=== PATIENT | female | born 1965 | race Caucasian/White ===

== ENCOUNTER 2019-08-23 18:37 | Emergency (ER) | payer OTHER, SELFPAY ==
--- NOTE | 2019-08-23 18:51 | ED.ALLEREA ---
HPI - Allergic Reaction General Chief complaint: Allergic Reaction Stated complaint: ALLERGIC REACTION Time Seen by Provider: 08/23/19 18:50 Source: patient Mode of arrival: ambulatory Limitations: no limitations History of Present Illness HPI narrative: The pt is a 53 y/o female who presents to the ED c/o hives onset two days ago. Pt states that she noticed hives across her posterior thighs and buttocks, but she notes these usually go away without difficulty. She states that she woke up the next day and noticed them spreading down her legs. Pt states that she was at work when she noticed it spreading down her BUE. Pt states that she has taken multiple Benadryl 50 mg capsules, but not 300 mg in total. She states that she also has taken Hydroxyzine, which has improved her itching. She noticed pain to the bilateral feet and hands, as well as swelling in the left wrist. Pt states that she went to her PCP, Marlyn Hickey NP, who gave her a steroid shot today and recommended she come to the ED in case her condition got worse. She eventually called and came in. Pt reports tongue soreness, sore throat, and a sensation of a lump in the chest. She denies SOB and wheezing. Pt denies any usage of new medicines, eating new foods, or trying any new products in her home. complaint: hives Onset (ago): day(s) (2) Symptoms: itching (Diffuse) and other ( tongue soreness, sore throat, left wrist swelling, bilateral hand pain, bilateral feet pain, sensation of a lump in the chest ) Treatment prior to arrival: benadryl, steroids and other (Hydroxyzine) Related Data Home Medications Medication Instructions Recorded Confirmed duloxetine [Cymbalta] 30 mg PO DAILY 08/23/19 08/23/19 duloxetine [Cymbalta] 60 mg PO DAILY 08/23/19 08/23/19 ergocalciferol (vitamin D2) 08/23/19 [Vitamin D2] ezetimibe mg 08/23/19 metformin mg PO 08/23/19 pregabalin 08/23/19 Allergies Allergy/AdvReac Type Severity Reaction Status Date / Time sulfamethoxazole Allergy Intermediate ITCHING/HIV Verified 01/06/19 07:17 ES trimethoprim Allergy Intermediate ITCHING/HIV Verified 01/06/19 07:17 ES penicillin G Allergy Unknown Hives Verified 08/23/19 19:11 Penicillins Allergy Unknown Hives Verified 08/23/19 19:11 Quinolones Allergy Unknown Hives Verified 08/23/19 19:11 bupropion AdvReac Unknown Agitated Verified 08/23/19 19:04 Review of Systems Review of Systems: All systems reviewed & are unremarkable except as noted in HPI and below ENT: Reports mouth pain (Tongue pain), Reports sore throat and Reports other (Sensation of a lump in the chest) Respiratory: Respiratory: Denies dyspnea and Denies wheezing Musculoskeletal: Musculoskeletal: Reports joint swelling (Left wrist) and Reports other (bilateral hand pain, bilateral feet pain) Integumentary/Breasts: Skin/Breast: Reports pruritus (Diffuse) and Reports other (Diffuse hives) [facility] Past Medical History Medical History (Updated 08/23/19 @ 23:02 by Marcelle Mccurdy MD) Anxiety Arthritis Bronchitis Depression Fibromyalgia Surgical History Surgical History (Updated 08/23/19 @ 18:58 by De Pendleton) S/p total knee replacement, bilateral Family History Family History (Updated 01/24/16 @ 23:19 by DOCTOR UNKNOWN) Father Family history of malignant neoplasm of thyroid Sibling Family history of malignant neoplasm of thyroid Grandparent Family history of lung cancer, Onset Age: 60 Other Diabetes mellitus Family history of alcoholism Family history of malignant neoplasm of breast Family history of mental disorder Social History Social History Smoking status: Never smoker Alcohol intake: current Gender identity (if verbalized by the patient): Female Comments 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
[2019-08-23 18:54] VITALS: BP 110/45; PULSE 81; RESP 15; TEMP 36.6; O2SAT 97
[2019-08-23] MEDS: methylPREDNISolone SOD SUCC 125 MG VIAL IV PUSH (19:16)
[2019-08-23] MEDS: EPINEPHrine HCL INJ 1 MG/ML AMPUL 0.3 MG IM ×2 (19:16→20:47)
[2019-08-23] MEDS: FAMOTIDINE 20 MG/2 ML VIAL IV PUSH (19:16)
[2019-08-23 19:21] VITALS: BP 123/71; PULSE 84; RESP 20; O2SAT 98
[2019-08-23 20:47] VITALS: BP 115/64; PULSE 84; RESP 16; TEMP 36.2; O2SAT 100
--- NOTE | 2019-08-23 21:41 | PC.NURSE ---
PT REPORTS NO RELIEF AFTER 2ND ROUND OF EPI. NOTIFIED. NO NEW ORDERS.
[2019-08-23 21:57] VITALS: BP 125/81; PULSE 82; RESP 17; O2SAT 100
[2019-08-23 23:40] VITALS: BP 124/85; PULSE 81; RESP 16; TEMP 36.2; O2SAT 100
== END 2019-08-23 23:41 | disposition home or self-care (01) ==
PROVIDERS: Emergency Provider Emergency Medicine; PCP Nurse Practitioner Adult Health
DX: L50.9 Urticaria, unspecified (principal); F41.9 Anxiety disorder, unspecified; M19.90 Unspecified osteoarthritis, unspecified site; F32.9 Major depressive disorder, single episode, unspecified; M79.7 Fibromyalgia; Z96.653 Presence of artificial knee joint, bilateral
CPT/HCPCS: 96372; 96374; 96375; 99284; J0171; J1200; J2930

== ENCOUNTER 2019-08-24 19:06 | Emergency (ER) | payer OTHER, SELFPAY ==
[2019-08-24 20:10] VITALS: BP 126/67; PULSE 106; RESP 22; TEMP 38.1; O2SAT 99
[2019-08-24 23:30] VITALS: BP 131/81; PULSE 95; RESP 16; TEMP 37; O2SAT 99
--- NOTE | 2019-08-25 00:54 | ED.ALLEREA ---
HPI - Allergic Reaction General Chief complaint: Allergic Reaction Stated complaint: hives,throat swelling Time Seen by Provider: 08/25/19 00:25 Source: patient and family Mode of arrival: ambulatory Limitations: no limitations History of Present Illness HPI narrative: 53-year-old female Long history of idiopathic urticaria Also numerous medication allergies and sensitivities Complains of a 5-day history of migratory hives pruritus and a feeling like she is having difficulty swallowing and swelling of the hands this evening There is no hoarseness there is no stridor there is no wheezing She is seen 2 other physicians [facility] she has been treated with H1 and H2 antihistamines steroids and epinephrine already Neither she nor anyone that she has recently seen has any idea what might have triggered this episode Specifically no unusual foods no new medications and no current viral illness sinus infection or anything like that MD complaint: hives and facial swelling Onset (ago): day(s) Exposure: unknown Symptoms: rash, itching, facial swelling and difficulty swallowing Severity: moderate Treatment prior to arrival: benadryl, epinephrine, steroids and topical medicine Previous Allergic Reaction History: other Related Data Home Medications Medication Instructions Recorded Confirmed duloxetine [Cymbalta] 30 mg PO DAILY 08/23/19 08/23/19 duloxetine [Cymbalta] 60 mg PO DAILY 08/23/19 08/23/19 ergocalciferol (vitamin D2) 08/23/19 [Vitamin D2] ezetimibe mg 08/23/19 metformin mg PO 08/23/19 pregabalin 08/23/19 Allergies Allergy/AdvReac Type Severity Reaction Status Date / Time sulfamethoxazole Allergy Intermediate ITCHING/HIV Verified 01/06/19 07:17 ES trimethoprim Allergy Intermediate ITCHING/HIV Verified 01/06/19 07:17 ES penicillin G Allergy Unknown Hives Verified 08/23/19 19:11 Penicillins Allergy Unknown Hives Verified 08/23/19 19:11 Quinolones Allergy Unknown Hives Verified 08/23/19 19:11 bupropion AdvReac Unknown Agitated Verified 08/23/19 19:04 Review of Systems Review of Systems: All systems reviewed & are unremarkable except as noted in HPI and below Constitutional: Constitutional: Denies chills, Denies fatigue, Denies fever(s), Denies headache(s) and Denies night sweats Eyes: Eyes: Denies change in vision, Denies loss of vision and Denies other visual disturbances ENT: Denies headache(s), Denies hoarseness, Denies epistaxis, Denies nasal congestion and Reports sore throat Cardiovascular: Cardiovascular: Denies chest pain, Denies leg edema, Denies palpitations and Denies dyspnea Respiratory: Respiratory: Denies cough, Denies dyspnea and Denies wheezing Gastrointestinal: Gastrointestinal: Denies abdominal pain, Denies diarrhea, Denies nausea and Denies vomiting Genitourinary: Genitourinary: Denies hematuria, Denies urinary frequency and Denies dysuria Musculoskeletal: Musculoskeletal: Denies abnormal gait, Denies myalgias, Denies deformity, Reports joint swelling, Denies muscle weakness and Denies numbness Comments: Swelling of the feet this morning which is resolved, swelling of the hands now, this started after she began steroids Integumentary/Breasts: Skin/Breast: Denies rash, Denies unusual bruising and Denies wounds Neurologic: Denies abnormal gait, Denies headache(s), Denies focal weakness, Denies loss of vision and Denies numbness Psychiatric: Psychiatric: Reports no additional psychiatric complaints Endocrine: Endocrine: Denies fatigue and Denies palpitations Hematologic/Lymphatic: Hematologic/Lymphatic: Denies easy bleeding and Denies easy bruising Allergic/Immunologic: Allergic/Immunologic: Denies wheezing PMFSH Past Medical History Medical History Anxiety Arthritis Bronchitis Depression Fibromyalgia Surgical History Surgical History S/p total kne
[2019-08-25] MEDS: DOXEPIN HCL 25 MG CAPSULE 50 MG PO (01:06)
[2019-08-25] MEDS: EPINEPHrine HCL INJ 1 MG/ML AMPUL 0.5 MG IM (01:07)
[2019-08-25 02:07] VITALS: BP 132/88; PULSE 88; RESP 16; TEMP 36.9; O2SAT 99
== END 2019-08-25 02:08 | disposition home or self-care (01) ==
PROVIDERS: Emergency Provider Emergency Medicine; PCP Nurse Practitioner Adult Health
DX: L50.9 Urticaria, unspecified (principal)
CPT/HCPCS: 87081; 87880; 96372; 99283; A9270; J0171

== ENCOUNTER → 2020-06-19 15:36 | Outpatient (CLI) | payer OTHER, SELFPAY ==
--- NOTE | ~2020-06-19 | MM_ITS ---
EXAMINATION: MM screening wilfredo BI w ed HISTORY: Screening mammogram TECHNIQUE: Craniocaudal and mediolateral oblique 3-D tomosynthesis images were obtained and synthetic 2-D images were generated. CAD analysis was submitted and interpreted. COMPARISON: 12/12/2018, 03/29/2017, 10/29/2015 bilateral digital screening mammogram examinations BREAST PARENCHYMAL COMPOSITION: There are scattered areas of fibroglandular density. FINDINGS: Biopsy markers and surgical clips are noted on the left; history of 3 prior benign left gema ast biopsies. There is no evidence of interval suspicious mass, calcification, or architectural disto rtion to suggest malignancy in either breast. There has been no suspicious interval change. IMPRESSION: 1. No mammographic evidence of malignancy. 2. Recommend routine screening mammography in one year. BI-RADS Category 2: Benign finding(s). Reviewed, dictated and finalized at location A. ITECTURE CONSULTANT
== END ==
PROVIDERS: PCP Nurse Practitioner Adult Health; Visit Provider Nurse Practitioner Adult Health
DX: Z12.31 Encounter for screening mammogram for malignant neoplasm of breast (principal)
CPT/HCPCS: 77063; 77067

== ENCOUNTER 2020-07-31 08:53 | Outpatient (CLI) | payer OTHER, SELFPAY ==
--- NOTE | 2020-07-31 16:25 | WPDPFTINT ---
PFT Interpretation This is a pulmonary function test with pre and post-bronchodilator spirometry, plethysmography and diffusing capacity. The test was performed and results interpreted in accordance with the 2019 and 2005 ATS/ERS Task Force guidelines respectively using the Tarik/Alfonso reference equations. Findings: Spirometry: The contour the inspiratory and expiratory flow tracing are normal. The pre bronchodilator FVC is 2.78 L, 96% predicted. The pre bronchodilator FEV1 is 2.25 L, 104% predicted. The FEV1: FVC ratio was 81%. The post bronchodilator FVC is 2.77 L, representing no change. The post bronchodilator FEV1 is 2.36 L, representing a 5% increase. Plethysmography the total lung capacity is 4.13 L, 95% predicted. The functional residual capacity is 1.26 L, 75% predicted. The peau the residual volume is 1.24 L, 80% predicted. Diffusing capacity the absolute diffusion capacity is 19.4, 76% predicted. Diffusing capacity corrected for alveolar volume is 5.34, 135% predicted. Impression: The spirometry is normal without evidence of an obstructive abnormality. There is no significant improvement after inhaling a single dose of albuterol. There is an isolated decrease in the functional residual capacity with a normal total lung capacity. This is an abnormal but nonspecific lung volume pattern. The Absolute diffusing capacity is mildly decreased but increased when corrected for alveolar volume. There are no prior studies for comparison
== END 2020-07-31 08:54 | disposition home or self-care (01) ==
PROVIDERS: PCP Nurse Practitioner Adult Health; Visit Provider Nurse Practitioner Adult Health
DX: R06.09 Other forms of dyspnea (principal)
CPT/HCPCS: 94060; 94200; 94726; 94729

== ENCOUNTER → 2021-12-16 16:02 | Outpatient (CLI) | payer OTHER, SELFPAY ==
--- NOTE | ~2021-12-16 | MM_ITS ---
EXAMINATION: MM screening wilfredo BI w ed HISTORY: Screening mammogram TECHNIQUE: Craniocaudal and mediolateral oblique 3-D tomosynthesis images were obtained and synthetic 2-D images were generated. CAD analysis was submitted and interpreted. COMPARISON: 06/19/2020, 12/12/2018, 03/29/2017 bilateral screening mammogram examinations BREAST PARENCHYMAL COMPOSITION: There are scattered areas of fibroglandular density. FINDINGS: Biopsy markers and clips again noted on the left; history of prior benign left breast biops ies. There is no evidence of suspicious mass, calcification, or architectural distortion to suggest m alignancy in either breast. There has been no suspicious interval change. IMPRESSION: 1. No mammographic evidence of malignancy. 2. Recommend routine screening mammography in one year. BI-RADS Category 1: Negative Reviewed, dictated and finalized at location A.
== END ==
PROVIDERS: PCP Nurse Practitioner Adult Health; Visit Provider Nurse Practitioner Adult Health
DX: Z12.31 Encounter for screening mammogram for malignant neoplasm of breast (principal)
CPT/HCPCS: 77063; 77067

== ENCOUNTER 2022-03-13 14:02 | Emergency (ER) | payer OTHER, SELFPAY ==
--- NOTE | 2022-03-13 14:07 | ED.UPPEXIN ---
HPI - Extremity Injury (Upper) General Chief Complaint: Extremity Injury, Upper Stated Complaint: rt shoulder pain fell Time Seen by Provider: 03/13/22 14:50 Source: patient and RN notes reviewed Mode of arrival: ambulatory Limitations: no limitations History of Present Illness HPI narrative: 56-year-old female presents with concern for right shoulder pain. Reports she fell yesterday, is not sure how she landed. She reports she did not have immediate pain in the shoulder, she did have ankle pain that resolved but she now has pain in the anterior right shoulder that occurs when she raises her arm or moves her arm in a certain way. She reports dull ache at rest. She reports she takes anti-inflammatory for other problems and she has not taken any additional pain medicines. She denies decreased strength or sensation in the shoulder or arm. MD complaint: injury to: right and shoulder Related Data Home Medications Medication Instructions Recorded Confirmed duloxetine 30 mg capsule,delayed 30 mg PO DAILY 08/23/19 11/12/20 release (Cymbalta) duloxetine 60 mg capsule,delayed 60 mg PO DAILY 08/23/19 11/12/20 release (Cymbalta) ezetimibe 10 mg tablet mg 08/23/19 11/12/20 metformin 500 mg tablet,extended mg PO 08/23/19 11/12/20 release 24 hr evening primrose oil-linoleic 1 cap PO TID 11/14/19 11/12/20 acid-gamolenic acid 1,000 mg capsule omeprazole magnesium 20 mg 20 mg PO DAILY 11/14/19 11/12/20 tablet,delayed release (Prilosec OTC) trazodone 150 mg tablet 150 mg PO BID 11/14/19 11/12/20 celecoxib 50 mg capsule (Celebrex) 50 mg PO DAILY 07/24/20 11/12/20 omega-3 fatty acids 1,000 mg 1,000 mg PO DAILY 11/12/20 11/12/20 capsule (Fish Oil Concentrate) Allergies Allergy/AdvReac Type Severity Reaction Status Date / Time sulfamethoxazole Allergy Intermediate ITCHING/HIV Verified 11/12/20 12:52 ES trimethoprim Allergy Intermediate ITCHING/HIV Verified 11/12/20 12:52 ES ciprofloxacin [From Cipro] Allergy Mild severe Verified 11/12/20 12:52 penicillin G Allergy Unknown Hives Verified 11/12/20 12:52 Penicillins Allergy Unknown Hives Verified 11/12/20 12:52 Quinolones Allergy Unknown Hives Verified 11/12/20 12:52 bupropion AdvReac Unknown Agitated Verified 11/12/20 12:52 Review of Systems Review of Systems: CONSTITUTIONAL: Denies malaise, chills, sweats, or fever. SKIN: Denies rash or itching, open skin, laceration, abrasion, redness, warmth, swelling. MUSCULOSKELETAL: Reports right anterior shoulder pain NEUROLOGIC: Denies numbness, weakness All systems reviewed & are unremarkable except as noted in HPI and below PMFSH Past Medical History Medical History Anxiety Arthritis Arthritis, lumbar spine Bilateral carpal tunnel syndrome Bronchitis Burning mouth syndrome Depression Fibromyalgia Gout Migraine Ulcer Surgical History Surgical History H/O sinus surgery History of cholecystectomy History of partial hysterectomy History of thyroid surgery S/p total knee replacement, bilateral right - 09/22/18 halina left 04/21/19 samuel Family History Family History Father Family history of malignant neoplasm of thyroid Sibling Family history of malignant neoplasm of thyroid Grandparent Family history of lung cancer, Onset Age: 60 Other Diabetes mellitus Family history of alcoholism Family history of malignant neoplasm of breast Family history of mental disorder Social History Social History Smoking status: Never smoker Alcohol intake: current Gender identity (if verbalized by the patient): Female Spiritual care concerns: Yes ( Islam) Agree to blood products: No Comments At time of signature, agree with nursing past medical, surgical, social and family hi
[2022-03-13 14:10] VITALS: BP 129/72; PULSE 72; RESP 21; TEMP 36.2; O2SAT 100
== END 2022-03-13 15:05 | disposition home or self-care (01) ==
PROVIDERS: Emergency Provider Nurse Practitioner; PCP Nurse Practitioner Adult Health
DX: S43.401A Unspecified sprain of right shoulder joint, initial encounter (principal); W19.XXXA Unspecified fall, initial encounter; M47.816 Spondylosis without myelopathy or radiculopathy, lumbar region; F32.A Depression, unspecified; M79.7 Fibromyalgia; M10.9 Gout, unspecified; Z90.711 Acquired absence of uterus with remaining cervical stump; Z96.653 Presence of artificial knee joint, bilateral
CPT/HCPCS: 99213; A4565; G0463

== ENCOUNTER 2022-05-14 08:33 | Emergency (ER) | payer OTHER, SELFPAY ==
[2022-05-14 08:47] VITALS: BP 105/75; PULSE 85; RESP 18; TEMP 36.9; O2SAT 100
--- NOTE | 2022-05-14 09:00 | ED.URI ---
HPI - URI/Sore Throat General Chief Complaint: Upper Respiratory Infection Stated Complaint: Sore Throat,Cough Time Seen by Provider: 05/14/22 08:55 Source: patient Mode of arrival: ambulatory Limitations: no limitations History of Present Illness HPI Narrative: Ms. Marshall is a 56-year-old female patient presenting to clinic today with complaints of sore throat,cough, and congestion. States that she has had a sore throat for approximately 4-5 days however this morning she woke up and she is congested nasally and having a productive cough with some yellow phlegm. She denies having any fever or chills. She denies any known exposure to anybody for strep, flu, or cold. Patient has taken COVID testing yesterday was negative MD elicited complaint: sore throat and nasal congestion Related Data Home Medications Medication Instructions Recorded Confirmed duloxetine 30 mg capsule,delayed 30 mg PO DAILY 08/23/19 05/14/22 release (Cymbalta) duloxetine 60 mg capsule,delayed 60 mg PO DAILY 08/23/19 05/14/22 release (Cymbalta) evening primrose oil-linoleic 1 cap PO TID 11/14/19 05/14/22 acid-gamolenic acid 1,000 mg capsule omeprazole magnesium 20 mg 20 mg PO DAILY 11/14/19 05/14/22 tablet,delayed release (Prilosec OTC) omega-3 fatty acids 1,000 mg 1,000 mg PO DAILY 11/12/20 05/14/22 capsule (Fish Oil Concentrate) diazepam 2 mg tablet 2 mg PO DIRECTED 05/14/22 05/14/22 nitrofurantoin 100 mg PO BID 05/14/22 05/14/22 monohydrate/macrocrystals 100 mg capsule trazodone 100 mg tablet 100 mg PO DIRECTED 05/14/22 05/14/22 Allergies Allergy/AdvReac Type Severity Reaction Status Date / Time sulfamethoxazole Allergy Intermediate ITCHING/HIV Verified 05/14/22 08:56 ES trimethoprim Allergy Intermediate ITCHING/HIV Verified 05/14/22 08:56 ES ciprofloxacin [From Cipro] Allergy Mild severe Verified 05/14/22 08:56 penicillin G Allergy Unknown Hives Verified 05/14/22 08:56 Penicillins Allergy Unknown Hives Verified 05/14/22 08:56 Quinolones Allergy Unknown Hives Verified 05/14/22 08:56 bupropion AdvReac Unknown Agitated Verified 05/14/22 08:56 Review of Systems Review of Systems: Pertinent positives per HPI. Patient denies any fever, chills, rash, headache, visual changes, dizziness, shortness of breath, chest pain, palpitations, nausea, vomiting, diarrhea, constipation, abdominal pain, or any urinary issues. PMFSH Past Medical History Medical History Anxiety Arthritis Arthritis, lumbar spine Bilateral carpal tunnel syndrome Bronchitis Burning mouth syndrome Depression Fibromyalgia Gout Migraine Ulcer Surgical History Surgical History H/O sinus surgery History of cholecystectomy History of partial hysterectomy History of thyroid surgery S/p total knee replacement, bilateral right - 09/22/18 halina left 04/21/19 samuel Family History Family History Father Family history of malignant neoplasm of thyroid Sibling Family history of malignant neoplasm of thyroid Grandparent Family history of lung cancer, Onset Age: 60 Other Diabetes mellitus Family history of alcoholism Family history of malignant neoplasm of breast Family history of mental disorder Social History Social History Smoking status: Never smoker Alcohol intake: current Gender identity (if verbalized by the patient): Female Spiritual care concerns: Yes ( Buddhism) Agree to blood products: No Comments At the time of my signature, I reviewed and agree with the nursing past medical, surgical, social, and family history. There is no relevant family history pertinent to the patient complaint. Exam Narrative: General: Well-developed, well nourished, in no appare
== END 2022-05-14 09:20 | disposition home or self-care (01) ==
PROVIDERS: Emergency Provider Nurse Practitioner Family; PCP Nurse Practitioner Adult Health
DX: J06.9 Acute upper respiratory infection, unspecified (principal); J02.9 Acute pharyngitis, unspecified; M19.90 Unspecified osteoarthritis, unspecified site; M79.7 Fibromyalgia; M10.9 Gout, unspecified; F32.A Depression, unspecified; F41.9 Anxiety disorder, unspecified; M47.816 Spondylosis without myelopathy or radiculopathy, lumbar region
CPT/HCPCS: 87081; 87880; 99213; G0463

== ENCOUNTER → 2022-05-19 12:10 | Outpatient (CLI) | payer OTHER, SELFPAY ==
--- NOTE | ~2022-05-19 | MR_ITS ---
EXAMINATION: MR wrist LT wo con DATE: 05/19/2022 12:58 INDICATION: Left wrist pain TECHNIQUE: Magnetic resonance imaging (MRI) of the left wrist was performed without intravenous contr ast. Sequences performed include axial PD-weighted FSE and PD-weighted FS FSE, coronal PD-weighted FS FSE, T1-weighted SE and PD-weighted FLEX and sagittal PD-weighted FS FSE and PD-weighted FSE. COMPARISON: ii FINDINGS: Intrinsic ligaments: The lunotriquetral ligament is normal. Thickening and increased signal peripherally dorsal and volar components of the scapholunate ligament with widening of the scapholunate joint space which is more c learly evident on the prior radiographs. Extrinsic ligaments: The volar radioscaphoid capitate ligament appears normal. There is thickening an d increased signal of the volar radiolunate ligament consistent with partial tear along which extends to an intrasubstance mild lobulated ganglion cyst which extends approximately 1.3 cm along the axis of the ligament and involves approximately 3 x 3 mm region in orthogonal dimensions. Mild thickening and increased signal surrounding the scaphoid side of the dorsal intercarpal ligament and at the triq uetral side of the dorsal radial triquetral ligament consistent with additional partial tears. Triangular fibrocartilage complex (TFCC): There is a partial tear at the foveal and ulnar styloid attachments of the triangular fibrocartilage complex. There is also partial tear along the dorsal radioulnar ligament. The volar radioulnar ligame nt along with the fibrocartilaginous disc of the triangular fibrocartilage complex remain normal. The ulnar collateral ligament, ulnotriquetral ligament and meniscal homologue are normal. The extensor c arpi ulnaris tendon subjacent appears intact with thickening along its insertion along the radial mar gin of the ECU groove. Extensor wrist: Extensor tendons of the wrist are normal. No tenosynovitis. Flexor wrist: The flexor tendons of the wrist are normal. No abnormality in the carpal tunnel with normal median n erve. Guyon's canal: Guyon's canal including the ulnar nerve and artery are normal. Bones/other: Likely reactive marrow edema at the radial side of the lunate. Marrow signal is otherwise normal. No fracture or pathologic marrow replacing process. 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 Additional mild osteoarthritis at the first carpomet acarpal joint. IMPRESSION: 1. 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 2. Additional partial tears of the volar radiolunate ligament and the dorsal intercarpal and dorsal r adial triquetral extrinsic ligaments of the wrist. 3. Partial tears at the dorsal radioulnar ligament as well as the foveal and styloid attachments of t he triangular fibrocartilage complex. Reviewed, dictated and finalized at location A. T SAFETY ENGINEER IMPRESSION: 1. 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 2. Additional partial tears of the volar radiolunate ligament and the dorsal in tercarpal and dorsal radial triquetral extrinsic ligaments of the wrist. 3. Partial tears at the dorsal radioulnar ligament as well as the foveal and st yloid attachments of the triangular fibrocartilage complex.
== END ==
PROVIDERS: PCP Orthopaedic Surgery; Visit Provider Orthopaedic Surgery
DX: S63.592A Other specified sprain of left wrist, initial encounter (principal); X58.XXXA Exposure to other specified factors, initial encounter
CPT/HCPCS: 73221

== ENCOUNTER 2022-11-06 01:41 | Day surgery (SDC) | payer OTHER, SELFPAY ==
[2022-10-27 15:53] VITALS: BMI 32.5
--- NOTE | 2022-11-05 20:01 | PM.HPGS ---
History of Present Illness History of Present Illness Consent: Risks, benefits, and alternatives have been discussed and questions answered. Patient agrees to proceed with procedure. Chief complaint: epigastric pain, chest pain, hx colon polyps Narrative: Radha Marshall is a 57 year old female here for evaluation of intermittent epigastric pain. Pt reports sudden onset of pain located epigastric region and diaphragm. States pain only last 1 min or so and then resolves, she denies any associated symptoms. describes pain as a spasm. she had approximately 5 episodes over the past 1-1/2 years. States symptoms only happen in the evening time usually 5-30 minutes after eating. She can not identify any triggers that cause her symptoms but thinks she may have had alcohol with these episodes. She also reports intermittent lower mid sternal chest discomfort after eating lunch, this is not every day and does not result in having a spasm later in the evening. She has hx of Gastritis in 2017 and was on pantoprazole daily back then. Four years ago she had colonoscopy with removal of a tubular adenoma. Review of Systems Review of Systems: All systems reviewed & are unremarkable except as noted in HPI and below PMFSH Past Medical History Medical History Anxiety Arthritis Arthritis, lumbar spine Bilateral carpal tunnel syndrome Bronchitis Burning mouth syndrome Depression Epigastric pain Fibromyalgia Gout Hx of colonic polyps Migraine Nonspecific chest pain Ulcer Surgical History Surgical History H/O sinus surgery History of cholecystectomy History of partial hysterectomy History of thyroid surgery S/p total knee replacement, bilateral right - 09/22/18 halina left 04/21/19 samuel Family History Family History Father Family history of malignant neoplasm of thyroid Sibling Family history of malignant neoplasm of thyroid Grandparent Family history of lung cancer, Onset Age: 60 Other Diabetes mellitus Family history of alcoholism Family history of malignant neoplasm of breast Family history of mental disorder Social History Social History Smoking status: Never smoker Alcohol intake: current Drinks per week: 10 Substance use: never Substance use type: does not use Living arrangements: with family Gender identity (if verbalized by the patient): Female Spiritual care concerns: Yes (BLOOD CONSIDERATIONS) Agree to blood products: No Meds Home Medications and Allergies Home Medications Medication Instructions Recorded Confirmed Type duloxetine 30 mg capsule,delayed 30 mg PO DAILY 08/23/19 10/27/22 History release (Cymbalta) duloxetine 60 mg capsule,delayed 60 mg PO DAILY 08/23/19 10/27/22 History release (Cymbalta) evening primrose oil-linoleic 1 cap PO BID 11/14/19 10/27/22 History acid-gamolenic acid 1,000 mg capsule diazepam 2 mg tablet 2 mg PO DIRECTED PRN Anxiety 05/14/22 10/27/22 History trazodone 100 mg tablet 100 mg PO HS 05/14/22 10/27/22 History calcium polycarbophil 625 mg 1,250 mg PO DAILY 10/27/22 10/27/22 History tablet (FiberCon) celecoxib 200 mg capsule 200 mg PO PRN PRN Pain 10/27/22 10/27/22 History clindamycin HCl 150 mg capsule 150 mg PO USEASDIRECTD 10/27/22 10/27/22 History fluticasone propionate 50 2 spray intranasal HS 10/27/22 10/27/22 History mcg/actuation nasal spray,suspension linaclotide 72 mcg capsule 72 mcg PO QAM 1 month #30 caps 10/27/22 10/29/22 Rx (Linzess) loratadine 10 mg tablet (Claritin) 10 mg PO DAILY 10/27/22 10/27/22 History naproxen sodium 220 mg capsule 220 mg PO DAILY PRN Pain 10/27/22 10/27/22 History (Aleve) polyethylene glycol 3350 17 17 g PO DAILY 10/27/22 10/27/22 History gram/dose oral powder (Key
--- NOTE | 2022-11-06 13:19 | WPDANESEPPF ---
Anes - Initial Pre Proc Eval Procedure: Operation Date: 11/06/22 14:15 Proposed Procedures p Esophagogastroduodenoscopy & Colonoscopy - Raffi Harris MD Date/Time: 11/06/22 13:19 Surgeon: Raffi Harris MD Pre Op Diagnosis: epigastric pain, chest pain, hx colon polyps Patient Data Age: 57 Gender: F Height: 1.56 m Weight: 79.5 kg Allergies Allergy/AdvReac Type Severity Reaction Status Date / Time ciprofloxacin [From Cipro] Allergy Severe severe Verified 10/27/22 16:01 penicillin G Allergy Intermediate Difficulty Verified 10/27/22 16:01 Breathing Penicillins Allergy Intermediate Difficulty Verified 10/27/22 16:01 Breathing Quinolones Allergy Intermediate Other Verified 10/27/22 16:01 sulfamethoxazole Allergy Intermediate ITCHING/HIV Verified 10/27/22 16:01 ES trimethoprim Allergy Intermediate ITCHING/HIV Verified 10/27/22 16:01 ES bupropion AdvReac Intermediate Agitated Verified 10/27/22 16:01 Home Medications Medication Instructions Recorded Confirmed Type duloxetine 30 mg capsule,delayed 30 mg PO DAILY 08/23/19 10/27/22 History release (Cymbalta) duloxetine 60 mg capsule,delayed 60 mg PO DAILY 08/23/19 10/27/22 History release (Cymbalta) evening primrose oil-linoleic 1 cap PO BID 11/14/19 10/27/22 History acid-gamolenic acid 1,000 mg capsule diazepam 2 mg tablet 2 mg PO DIRECTED PRN Anxiety 05/14/22 10/27/22 History trazodone 100 mg tablet 100 mg PO HS 05/14/22 10/27/22 History calcium polycarbophil 625 mg 1,250 mg PO DAILY 10/27/22 10/27/22 History tablet (FiberCon) celecoxib 200 mg capsule 200 mg PO PRN PRN Pain 10/27/22 10/27/22 History clindamycin HCl 150 mg capsule 150 mg PO USEASDIRECTD 10/27/22 10/27/22 History fluticasone propionate 50 2 spray intranasal HS 10/27/22 10/27/22 History mcg/actuation nasal spray,suspension linaclotide 72 mcg capsule 72 mcg PO QAM 1 month #30 caps 10/27/22 10/29/22 Rx (Linzess) loratadine 10 mg tablet (Claritin) 10 mg PO DAILY 10/27/22 10/27/22 History naproxen sodium 220 mg capsule 220 mg PO DAILY PRN Pain 10/27/22 10/27/22 History (Aleve) polyethylene glycol 3350 17 17 g PO DAILY 10/27/22 10/27/22 History gram/dose oral powder (Miralax) Patient hx anesthesia problems: none Family hx anesthesia problems: none Results Review: All pre-operative results and documents have been reviewed as part of the pre-operative evaluation. [facility] Past Medical History Medical History (Updated 10/22/22 @ 16:19 by ADRI ChavezN-C) Anxiety Arthritis Arthritis, lumbar spine Bilateral carpal tunnel syndrome Bronchitis Burning mouth syndrome Depression Epigastric pain Fibromyalgia Gout Hx of colonic polyps Migraine Nonspecific chest pain Ulcer Surgical History Surgical History H/O sinus surgery History of cholecystectomy History of partial hysterectomy History of thyroid surgery S/p total knee replacement, bilateral right - 09/22/18 halina left 04/21/19 samuel Family History Family History Father Family history of malignant neoplasm of thyroid Sibling Family history of malignant neoplasm of thyroid Grandparent Family history of lung cancer, Onset Age: 60 Other Diabetes mellitus Family history of alcoholism Family history of malignant neoplasm of breast Family history of mental disorder Social History Social History Smoking status: Never smoker Alcohol intake: current Drinks per week: 10 Substance use: never Substance use type: does not use Living arrangements: with family Gender identity (if verbalized by the patient): Female Spiritual care concerns: Yes (BLOOD CONSIDERATIONS) Agree to blood products: No Anes - Eval Final PreProcedure Day of Procedure 11/06/22 13:19 Patient weight: obese Hear
[2022-11-06 13:26] VITALS: BP 110/69; PULSE 78; RESP 18; TEMP 36.3; O2SAT 100
[2022-11-06] MEDS: LACTATED RINGERS 1,000 ML 150 ML IV CONT (13:40)
[2022-11-06] MEDS: ceFAZolin 1 GM/NS 50 ML 1 GM/50 ML BAG IVPB (13:44)
--- NOTE | 2022-11-06 14:15 | SUR.OPER ---
egd: scope in 1355, scope out 1357 colon: scope in 1403, scope out 1414
[2022-11-06 14:18] VITALS: BP 106/63; PULSE 65; RESP 16; O2SAT 100
[2022-11-06 14:28] VITALS: BP 118/79; PULSE 58; RESP 16; O2SAT 99
[2022-11-06 14:38] VITALS: BP 124/81; PULSE 58; RESP 20; O2SAT 100
== END 2022-11-06 14:50 | disposition home or self-care (01) ==
PROVIDERS: PCP Physician Assistant; Visit Provider Internal Medicine Gastroenterology
PROC: 0DJ08ZZ Inspection of Upper Intestinal Tract, Via Natural or Artificial Opening Endoscopic (ICD-10-PCS; CPT 43235; principal; 2022-11-06 14:15)
DX: Z12.11 Encounter for screening for malignant neoplasm of colon (principal); K64.8 Other hemorrhoids; K57.30 Diverticulosis of large intestine without perforation or abscess without bleeding; Z86.010 Personal history of colon polyps; K21.9 Gastro-esophageal reflux disease without esophagitis; K29.70 Gastritis, unspecified, without bleeding; F41.9 Anxiety disorder, unspecified; F32.A Depression, unspecified; E66.9 Obesity, unspecified; Z68.32 Body mass index [BMI] 32.0-32.9, adult
CPT/HCPCS: 45378; 43239; 87081; J0690; J2704; J7120

== ENCOUNTER → 2023-05-19 16:15 | Outpatient (CLI) | payer OTHER, SELFPAY ==
--- NOTE | ~2023-05-19 | MM_ITS ---
EXAMINATION: MM screening wilfredo BI w ed HISTORY: Screening mammogram TECHNIQUE: Craniocaudal and mediolateral oblique 3-D tomosynthesis images were obtained and synthetic 2-D images were generated. CAD analysis was submitted and interpreted. COMPARISON: 12/16/2021, 06/19/2020, 12/12/2018 bilateral screening mammogram examinations BREAST PARENCHYMAL COMPOSITION: There are scattered areas of fibroglandular density. FINDINGS: Biopsy markers and clips are again noted in the left breast; history of 3 prior benign left breast biopsies. There is no evidence of interval suspicious mass, calcification, or architectural d istortion to suggest malignancy in either breast. There has been no suspicious interval change. IMPRESSION: 1. No mammographic evidence of malignancy. 2. Recommend routine screening mammography in one year. BI-RADS Category 2: Benign finding(s). Reviewed, dictated and finalized at location A. NT ACCOUNT REPRESENTATIVE
== END ==
PROVIDERS: PCP Nurse Practitioner Adult Health; Visit Provider Nurse Practitioner Adult Health
DX: Z12.31 Encounter for screening mammogram for malignant neoplasm of breast (principal)
CPT/HCPCS: 77063; 77067

== ENCOUNTER 2023-07-07 10:06 | Outpatient (CLI) | payer OTHER, SELFPAY ==
--- NOTE | ~2023-07-07 | XR_ITS ---
Supine and upright views of the abdomen Clinical history: Abdominal pain Findings: Bowel gas pattern is nonspecific. No evidence for obstruction or free air. Cholecystectomy clips are present. Probable calcified pelvic phleboliths. No abnormal mass lesion or calcification is seen. Osseous structures are intact. Impression: No significant abnormality is seen. Reviewed, dictated and finalized at [facility] [place] [facility]. ER OPERATOR Impression: No significant abnormality is seen.
== END 2023-07-07 10:07 | disposition home or self-care (01) ==
LOC: ANHBWCLAB 10:08
PROVIDERS: PCP Nurse Practitioner Adult Health; Visit Provider Nurse Practitioner Adult Health
DX: R10.9 Unspecified abdominal pain (principal)
CPT/HCPCS: 74018

== ENCOUNTER → 2023-07-21 12:50 | Outpatient (CLI) | payer OTHER, SELFPAY ==
--- NOTE | ~2023-07-21 | CT_ITS ---
Non-contrast CT scan of the Abdomen and Pelvis Clinical indication: Unspecified abdominal pain Technique: 2.5 mm axial scans were obtained through the abdomen and pelvis without intravenous or or al contrast. Dose reduction technique was used on this scan by utilizing automated exposure control a nd iterative reconstruction technique. The dose-length product (DLP) was 999.64 mGy-cm. Findings: Images through the lung bases reveal no abnormalities. There is no evidence of renal or ureteral calculi. The kidneys and the ureters are nondilated. The liver, spleen, pancreas, and adrenals appear normal. Cholecystectomy clips are present. There is no aortic aneurysm. There is no evidence of bowel obstruction. Images through the pelvis were performed. There is no evidence of ascites or lymphadenopathy. Urinary bladder unremarkable. No adnexal mass evident. No ascites. Impression: No significant abnormality seen. Reviewed, dictated and finalized at [facility]. INSOLE CHANNELER Impression: No significant abnormality seen.
== END ==
PROVIDERS: PCP Nurse Practitioner Adult Health; Visit Provider Nurse Practitioner Adult Health
DX: R10.9 Unspecified abdominal pain (principal)
CPT/HCPCS: 74176

== ENCOUNTER 2024-01-26 08:13 | Outpatient (CLI) | payer OTHER, SELFPAY ==
--- NOTE | ~2024-01-26 | XR_ITS ---
EXAMINATION: XR hip BI 2V w AP pelvis DATE: 01/26/2024 08:32 INDICATION: Pain in unspecified hip. TECHNIQUE: An anteroposterior view of the pelvis and 2 views of each hip were obtained. COMPARISON: Pelvis and hip radiographs 07/24/2020 FINDINGS: Bone alignment is normal. No fracture. Joint spaces are normal. There is mild lumbar spondy losis. IMPRESSION: 1. Normal hips. Reviewed, dictated and finalized at location A. IMPRESSION: 1. Normal hips.
--- NOTE | ~2024-01-26 | XR_ITS ---
EXAMINATION: XR lumbar spine 2-3V DATE: 01/26/2024 08:32 INDICATION: Dorsalgia, unspecified. TECHNIQUE: 3 views of lumbar spine were obtained. COMPARISON: Lumbar spine radiographs 07/24/2020 FINDINGS: There is 5 degrees levocurvature of lumbar spine. There is 3 mm anterolisthesis of L4 on L5 . There is mild chronic anterior wedging of T10 and T11 vertebral bodies. There is mildly decreased d isc height at L1-L2. There is multilevel facet joint osteoarthritis, severe in lower lumbar spine. IMPRESSION: 1. Mild lumbar spondylosis. Reviewed, dictated and finalized at location A. IMPRESSION: 1. Mild lumbar spondylosis.
== END 2024-01-26 08:14 | disposition home or self-care (01) ==
LOC: ANHBWCIMG 08:15
PROVIDERS: PCP Nurse Practitioner Adult Health; Visit Provider Nurse Practitioner Adult Health
DX: M43.06 Spondylolysis, lumbar region (principal)
CPT/HCPCS: 72100; 73521

== ENCOUNTER 2024-05-30 09:32 | Outpatient (CLI) | payer BC, SELFPAY ==
--- NOTE | ~2024-05-30 | MR_ITS ---
EXAMINATION: MR lumbar spine wo con DATE: 05/30/2024 10:46 INDICATION: Spondylosis without myelopathy or radiculopathy. TECHNIQUE: Magnetic resonance imaging (MRI) of the lumbar spine was performed without intravenous con trast. Sequences included sagittal T2-weighted FSE, sagittal T2-weighted FS FSE, sagittal T1-weighted FSE, and axial T2-weighted FSE. COMPARISON: Lumbar spine MRI 05/14/2016 FINDINGS: There is 5 degrees levocurvature of thoracolumbar spine. There is 3 mm anterolisthesis of L 4-L5. There is mild chronic anterior wedging of T12 vertebral body. Intervertebral disc heights are n ormal. The distal spinal cord signal intensity is normal. The conus medullaris is at L1-L2. The follo wing disc levels are specifically discussed: L1-L2: There is a central protrusion. There is mild bilateral facet joint osteoarthritis. There is no neural foraminal stenosis. There is mild central canal stenosis. L2-L3: The disc does not extend beyond the endplate margin. There is mild bilateral facet joint osteo arthritis. There is no neural foraminal stenosis. There is no central canal stenosis. L3-L4: The disc does not extend beyond the endplate margin. There is no facet joint osteoarthritis. T here is no neural foraminal stenosis. There is no central canal stenosis. L4-L5: The disc is bulging. There is severe bilateral facet joint osteoarthritis. There is mild bilat eral neural foraminal stenosis. There is mild central canal stenosis. L5-S1: The disc does not extend beyond the endplate margin. There is moderate bilateral facet joint o steoarthritis. There is mild bilateral neural foraminal stenosis. There is no central canal stenosis. IMPRESSION: 1. Mild lumbar spondylosis, stable from 05/14/2016. Reviewed, dictated and finalized at location A. CAL RECORDS ANALYST
== END 2024-05-30 09:33 | disposition home or self-care (01) ==
PROVIDERS: PCP Nurse Practitioner Adult Health; Visit Provider Nurse Practitioner Adult Health
DX: M47.26 Other spondylosis with radiculopathy, lumbar region (principal)
CPT/HCPCS: 72148

== ENCOUNTER 2024-05-30 09:41 | Outpatient (CLI) | payer BC, SELFPAY ==
--- NOTE | ~2024-05-30 | MM_ITS ---
EXAMINATION: MM screening wilfredo BI w ed HISTORY: Screening TECHNIQUE: Craniocaudal and mediolateral oblique 3-D tomosynthesis images were obtained and synthetic 2-D images were generated. CAD analysis was submitted and interpreted. COMPARISON: Comparison to multiple prior studies sequentially, with oldest reviewed study dated 08/2015. BREAST PARENCHYMAL COMPOSITION: Not dense: There are scattered areas of fibroglandular density. FINDINGS: There is no evidence of suspicious mass, calcification, or architectural distortion to sugg est malignancy in either breast. There has been no suspicious interval change. IMPRESSION: 1. No mammographic evidence of malignancy. 2. Recommend routine screening mammography in one year. BI-RADS Category 1: Negative Reviewed, dictated and finalized at location B. OGRAPHER
== END 2024-05-30 09:42 | disposition home or self-care (01) ==
PROVIDERS: PCP Nurse Practitioner Adult Health; Visit Provider Nurse Practitioner Adult Health
DX: Z12.31 Encounter for screening mammogram for malignant neoplasm of breast (principal)
CPT/HCPCS: 77063; 77067

== ENCOUNTER 2024-09-19 08:47 | Outpatient (CLI) | payer BC, SELFPAY ==
--- NOTE | ~2024-09-19 | MR_ITS ---
EXAMINATION: MR hip LT wo con, MR hip RT wo con DATE: 09/19/2024 09:45 INDICATION: Bilateral hip pain TECHNIQUE: 1. Magnetic resonance imaging (MRI) of the right hip was performed without intravenous contrast. Sequ ences included full-field axial PD-weighted FS FSE and T1-weighted FSE, coronal of the pelvis with PD -weighted FS FSE, T2-weighted FSE and T1-weighted FSE, small field of view of the right hip with axia l PD-weighted FS FSE, sagittal PD-weighted FS FSE, coronal PD-weighted FS FSE and coronal T2 weighte d FSE. Additional radial T1-weighted FGR oriented orthogonal to the acetabular rim were obtained for evaluation of the labrum. 2. MRI of the left hip was performed without intravenous contrast. Sequences included small field of view of the left hip with axial PD-weighted FS FSE, sagittal PD-weighted FS FSE, coronal PD-weighted FS FSE and coronal T2 weighted FSE. Additional radial T1-weighted FGR oriented orthogonal to the tere tabular rim were obtained for evaluation of the labrum. COMPARISON: Radiographs dated 01/26/2024 FINDINGS: Bones/labrum/cartilage: Alignment is normal. No fracture, avascular necrosis or pathologic marrow replacing process.. Articu lar cartilage and acetabular labrum is normal at both hips. Lumbar facet osteoarthritis, severe bilat erally at L4-L5 and moderate bilaterally at L5-S1. Fluid: Symmetric physiologic amount of fluid within both hip joints. There is mild increased fluid signal ov erlying the superolateral margin of the bilateral greater trochanters consistent with mild trochanter ic bursitis. Soft tissues: Normal and symmetric muscle bulk and signal in the pelvis and visualized proximal thighs. The iliopso as, gluteal and proximal hamstring tendons are normal. The uterus is not identified and has likely be en surgically resected. Limited evaluation of visceral organs of the pelvis is otherwise unremarkable including a normal appendix. No pathologically enlarged pelvic/inguinal lymphadenopathy. IMPRESSION: 1. Mild bilateral trochanteric bursitis. 2. Lumbar facet osteoarthritis, severe bilaterally at L4-L5 and moderate bilaterally at L5-S1. Reviewed, dictated and finalized at location B. IMPRESSION: 1. Mild bilateral trochanteric bursitis. 2. Lumbar facet osteoarthritis, severe bilaterally at L4-L5 and moderate bilate rally at L5-S1.
== END 2024-09-19 08:48 | disposition home or self-care (01) ==
LOC: MICIMG 08:49
PROVIDERS: PCP Nurse Practitioner Adult Health; Visit Provider Anesthesiology Pain Medicine
DX: M70.62 Trochanteric bursitis, left hip (principal); M70.61 Trochanteric bursitis, right hip
CPT/HCPCS: 73721

== ENCOUNTER 2025-04-09 16:31 | Emergency (ER) | payer OTHER, SELFPAY ==
[2025-04-09] VITALS (23 sets, daily range): BP systolic 120–151; BP diastolic 67–125; PULSE 42–88; RESP 12–23; TEMP 36.6; O2SAT 87–100
--- NOTE | ~2025-04-09 | XR_ITS ---
XR chest 1V portable INDICATION:palpitations . REFERENCE: None FINDINGS: A single AP of the chest demonstrates normal heart size. There are patchy infiltrates within the lower lobes bilaterally. There is no evidence of pneumothorax or pleural effusion. IMPRESSION: Patchy infiltrates are noted within the lower lobes bilaterally. Reviewed, dictated and finalized at location S.
--- NOTE | 2025-04-09 16:33 | ECG_ITS ---
Test Date: 2025-04-09 16:38:26 Measurements Intervals Thompson Rate: 92 P: 48 NV: 141 QRS: -7 QRSD: 97 T: 8 QT: 352 QTc: 436 Interpretive Statements SINUS RHYTHM WITH VENTRICULAR BIGEMINY DELAYED PRECORDIAL R/S TRANSITION VOLTAGE CRITERIA FOR LVH BASELINE ARTIFACT- I, II, III, AVR, AVL, AVF, V1-V3 ABNORMAL ECG No previous ECG available for comparison Electronically Signed On 04-09-2025 19:03:22 CDT by Curtis Minaya D.O.
--- OUTSIDE RECORDS SUMMARY | 2025-04-09 16:34 | XMS_ITS | Clinical Summary ---
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 Acti ve DICLOFENAC SODIUM OP Place in affected eye(s). Active DULoxetine (CYMBALTA) [address] Particles Take 30 mg by mouth daily. Active DULoxetine (CYMBALTA) [address] Particles Take 60 mg by mouth daily. Active V-R EVENING PRIMROSE OIL PO Take by mouth. Active Aspirin-Acetaminoph en-Caffeine (EXCEDRIN MIGRAINE PO) Take by mouth. Activ e ezetimibe (ZETIA) 10 MG Tablet Take 10 mg by mouth daily. Active HYDROcodone-acetami nophen (NORCO) 5-325 MG Tablet Take 1 Tab by mouth every 4 hours as needed. Active metFORMIN (GLUCOPHAGE) 500 MG Tablet Take 500 mg by mouth 2 times daily (with meals). Active methocarbamol (ROBAXIN) 500 MG Tablet Take 1,000 mg by mouth 4 times daily. Active PANTOPRAZOLE SODIUM PO Take 40 mg by mouth. Active traZODone (DESYREL) 150 MG Tablet Take 150 mg by mouth nightly. Active ergocalciferol (VITAMIN D) 92871 UNIT Capsule Take 50,000 Units by mouth. Active diclofenac sodium (VOLTAREN) 1 % Gel Apply 4 times daily. Active aluminum & magnesium hydroxide-simethico ne 200-200-20 MG/5ML SUSP 90 mL, diphenhydrAMINE 12.5 MG/5ML ELIX 31.25 mg, lidocaine viscous 2 % SOLN 20 mL 5-10 mL by Swish & Spit route every 6 hours as needed. for mouth/throat discomfort. Pharmacist Mixture Instructions *ALUM & MAG HYDROXIDE-SIMETH 200-200-20 MG/5ML PO SUSP -- 360 mL *DIPHENHYDRAMINE HCL 12.5 MG/5ML PO ELIX -- 125 MG *LIDOCAINE VISCOUS 2% MT SOLN -- 80 mL Active Social History Tobacco Use Types Packs/Day Years Used Date Smoking Tobacco: Never Smokeless Tobacco: Never Alcohol Use Standard Drinks/Week Comments Yes 0 (1 standard drink = 0.6 oz pur e alcohol) social Comments Unknown Sex and Gender Information Value Date Recorded Sex Assigned at Not on file Legal Sex Female 6:09 PM CDT Gender Identity Not on file Sexual Orientation Not on file Last Filed Vital Signs Vital Sign Reading Time Taken Comments Blood Pressure 114/76 08/19/2018 10:12 AM SENIOR SUPPORT ANALYST Pulse 71 08/19/2018 10:12 AM SENIOR SUPPORT ANALYST Temperature 36.9 C (98.5 F) 08/19/2018 10:12 AM SENIOR SUPPORT ANALYST Respiratory Rate - - Oxygen Saturation 96% 08/19/2018 10: 12 AM SENIOR SUPPORT ANALYST Inhaled Oxygen Concentration - - Weight 106.5 kg (234 lb 12.8 oz) 2018 10:12 AM SENIOR SUPPORT ANALYST Height 156.5 cm (5' 1.6) 08/19/2018 10 :12 AM SENIOR SUPPORT ANALYST Body Mass Index 43.51 08/19/2018 10:12 AM SENIOR SUPPORT ANALYST Plan of Treatment Health Maintenance Due Date Last Done Comments Hepatitis C Virus (HCV) Screening 1965 TdaP Immunization 1965 Cologuard 11/03/2011 Colonoscopy 11/03/2011 Colorectal Cancer Screening 11/03/2011 Immunochemical Fecal Occult Blood 11/03/2011 Pneumococcal Immunization (50+ years) (1 of 1 - PCV) 2016 Zoster Immunization (1 of 2) 2016 Influenza Immunization (#1) 2025 10/0 06/2017, 04/01/2016, 02/28/2015, Additional history exists SARS-COV-2 Immunization ( season) 2025 10/24/2021, 03/24/2021, 09/16/2020, Additional history exists Respiratory Syncytial Virus (RSV) Immunization (Adult) (1 - 1-dose 75+ series) 2041 Hepatitis B Immunization Completed 014, 05/31/2013, 04/19/2013 Human Papillomavirus (HPV) Immunization Aged Out No longer eligible based on patient's age to complete this topic Meningococcal Immunization (ACWY) Aged Out No longer eligible based on patient's age to complete this topic Rotavirus Immunization Aged Out No lo nger eligible based on patient's age to complete this topic Care Teams Beef Cattle Grazier Relationship Specialty Start Date End Date Marlyn Hickey APRN PCP - General Advanced Practice Nurse 08/19/18 Joel Ch [address] [place] [address] Orthopaedic Surgery 08/19/18
--- OUTSIDE RECORDS SUMMARY | 2025-04-09 16:34 | XMS_ITS | Clinical Summary ---
Author Organization [facility] [employer] Address [address] [address] Care Team Providers Care Audiovisual Lead Technician Name Role Phone Hector Morel DO Primary Care Provider Source Comments [facility],non-owned Affiliates and Associated Physician Practices is amultiple site organization consisting of ambulatory clinics and hospital sitesin [place], [place], [place] and [place]. This disclosure is being madepursuant to the Care Everywhere program and may not contain all information available regarding this patient. 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 Problems Problem Noted Date Diagnosed Date Other microscopic hematuria 02/20/2015 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 Rectocele 02/20/2015 Stress incontinence 02/20/2015 Other disturbances of skin sensation 03/29/2012 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 Migraine without status migrainosus, not intract able 10/13/2011 Fibromyalgia 10/13/2011 Resolved Problems Problem Noted Date Diagnosed Date Resolved Date Constipation 02/20/2015 10/25/2017 Family History Medical History Relation Name Comments Thyroid Disease Father Heart Disease Maternal Grandfather Diabetes Maternal Grandmother Osteoporosis Maternal Grandmother Depression Mother Migraine Mother Cancer - Breast Other Diabetes Other Relation Name Status Comments Father Maternal Grandfather Maternal Grandmother Mother Other Social History Tobacco Use Types Packs/Day Years Used Date Smoking Tobacco: Passive Smo ke Exposure - Never Smoker Smokeless Tobacco: Never Alcohol Use Standard Drinks/Week Comments Yes 0 (1 standard drink = 0.6 oz pur e alcohol) Comments Unknown Sex and Gender Information Value Date Recorded Sex Assigned at Not on file 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 Gender Identity Not on file Sexual Orientation Not on file Last Filed Vital Signs Vital Sign Reading Time Taken Comments Blood Pressure 127/60 06/03/2015 10:56 AM MARKETING BUSINESS ANALYST Pulse - - Temperature 36.5 C (97.7 F) 06/03/2015 10:56 AM MARKETING BUSINESS ANALYST Respiratory Rate - - Oxygen Saturation - - Inhaled Oxygen Concentration - - Weight 102.3 kg (225 lb 8 oz) 06/03/2015 10:56 A M MARKETING BUSINESS ANALYST Height 154.9 cm (5' 1) 06/03/2015 10:56 AM MARKETING BUSINESS ANALYST Body Mass Index 42.61 06/03/2015 10:56 AM MARKETING BUSINESS ANALYST Plan of Treatment Health Maintenance Due Date Last Done Comments COLOGUARD (AGES 45-75) - COL ON CA SCREENING 1966 COLON MONITORING 1966 COLONOSCOPY - COLON CA SCREENING 1966 CT COLONOGRAPHY - COLON CA SCREENING 1966 Colorectal Cancer Screening 1966 FIT - COLON CA SCREENING 1966 FLEX SIG - COLON CA SCREENING 1966 LIPID TESTING 1966 MAMMOGRAM 1966 HIV SCREENING 1981 HEPATITIS C SCREENING 10/28/1984 DTAP/TDAP/TD VACCINES (1 - Tdap) 1985 HEPATITIS B VACCINE (1 of 3 - 19+ 3-dose series) 1985 PNEUMOCOCCAL VACCINE 50+ (1 of 1 - PCV) 2016 ZOSTER VACCINE (1 of 2) 2016 DEPRESSION SCREENING 06/28/2024 COVID-19 VACCINE (1 - 2023-2 5 season) 2025 INFLUENZA VACCINE (#1) 2025 HIB VACCINE Aged Out No longer eligi ble based on patient's age to complete this topic HPV VACCINE Aged Out No longer eligi ble based on patient's age to complete this topic MENINGOCOCCAL (Group B) VACC INE SHARED DECISION-MAKING Aged Out No longer eligibl e based on patient's age to complete this topic MENINGOCOCCAL GROUPS A/C/Y/W VACCINE Aged Out No longer eligible b ased on patient's age to complete this topic Care Teams Audiovisual Lead Technician Relationship Specialty Start Date End Date Hector Morel DO PCP - General 04/30/15
--- OUTSIDE RECORDS SUMMARY | 2025-04-09 16:35 | XMS_ITS | Data Portability ---
Author Organization [place] - [facility], Main Office Address [address] [place] [address] Assessment No assessment recorded. Plan of Treatment Reminders Order Date Submit Date Provider Last Modified By Organization Details Last Modified Time Details Appointments None recorded. Lab None recorded. Referral gastroenter ologist referral - Please call pt to schedule appt. Thank you 2022 023 [email or web address] Jorge Muller MD, [address] [facility] [address], [place] [address], [address], 3 14:32:40 Procedures None recorded. Surgeries None recorded. Imaging None recorded. Medication Orders None recorded. Patient TargetsNo targets recorded. Patient InstructionsNo instructions recorded. 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 Thank you Referring Physician: Fariba Ambrose, Family Medicine, Encounter Date: 10/05/2022 Results Created Date Observation Date Name Description Value Unit Range Abnormal Flag Note LastModifiedBy Organization Detail LastModifiedTime 09/13/19 22 09/15/2021 BACTE RIAL VAGIN OSIS, AARON atopobium vaginae low - 0 score Not Available [facility] (Lab) [address] [place], [address], 09/15/2021 23:07:14 09/13/19 22 09/15/2021 BACTE RIAL VAGIN OSIS, AARON bvab 2 low - 0 score Not Available [facility] (Lab) [address] [place], [address], 09/15/2021 23:07:14 09/13/19 22 09/15/2021 BACTE RIAL VAGIN OSIS, AARON megasphaera 1 low - 0 score . Calcu late total score by lupe post the 3 indiv idual bacte rial vagin osis (BV) marke r score s toget her. Total score is inter prete d as follo ws: Total score 0-1: Indic ates the absen ce of BV. Total score 2: Indet ermin ate for BV. Addit ional clini rosa data shoul d be evalu ated to estab jace a diagn osis. Total score 3-6: Indic ates the prese nce of BV. . This test was devel oped and its perfo rmanc e lori cteri stics deter mined by [facility]. It has not been clear ed or appro bradford by the Food and Drug Admin istra tion. Perfo rmed at: =G - [facility] [place] [address] [facility] , [place] , [place] [address] [address] Lab Direc tor: Riky dan MD, Phone : [phone] Not Available [facility] (Lab) [address] [place], [address], 09/15/2021 23:07:14 12/21/19 22 12/21/2021 VITAM IN D, 25-HY DROXY vitamin D, 25-hydroxy 93.7 NG/mL 30.0-1 00.0 Vitam in D defic iency has been defin ed by the Insti tute of Medic ine and an Endoc rine Socie ty pract ice guide line as a level of serum 25-OH vitam in D less than 20 ng/mL (1,2) . The Endoc rine Socie ty went on to furth er defin e vitam in D insuf ficie ncy as a level betwe en 21 and 29 ng/mL (2). 1. IOM (Inst itute of Medic ine). 2010. Dieta ry refer ence intak es for calci um and D. Mingo victor [place]: The [facility] Press . 2. Rupesh levine MF, Abel oconnell [place], Tavon off-F linh i OTOOLE, et al. Evalu ation , treat ment, and preve ntion of vitam in D defic iency : an Endoc rine Socie ty clini rosa pract ice guide line. JCEM. 2010; 96(7) :1911 -30. Not Available [facility] ([facility]) [address] [place], [address], 12/21/2021 08:13:36 12/21/19 22 12/21/2021 HEMOG LOBIN A1C hemoglobin A1C 5.4 % 4.8-5. 6 Predi abete s: 5.7 - 6.4 Diabe emile: >6.4 Glyce jerry contr ol for adult s with diabe emile: <7.0 Not Available [facility] ([facility]) [address] [place], [address], 12/21/2021 08:13:36 12/21/19 22 12/21/2021 COMP. METAB OLIC PANEL (14) glucose 91 mg/dL 65-99 Not Available [facility] ([facility]) [address] [place], [address], 12/21/2021 08:13:35 12/21/19 22 12/21/2021 COMP. METAB OLIC PANEL (14) BUN 21 mg/dL 6-24 Not Available [facility] ([facility]) [address] [place], [address], 12/21/2021 08:13:35 12/21/19 22 12/21/2021 COMP. METAB OLIC PANEL (14) creatinine 0.76 mg/dL 0.57-1 .00 Not Available [facility] ([facility]) [address] [place], [address], 12/21/2021 08:13:35 12/21/19 22 12/21/2021 COMP. METAB OLIC PANEL (14) eGFR 92 mL/mi n/1.7 3 >59 Not Available [facility] ([facility]) [address], [place], [address], 12/21/2021 08:13:35 12/21/19 22 12/21/2021 COMP. METAB OLIC PANEL (14) BUN/creatini ne ratio 28 9-23 above high normal Not Available [facility] ([facility]) [address] [place], [address], 12/21/2021 08:13:35 12/21/19 22 12/21/2021 COMP. METAB OLIC PANEL (14) sodium 139 mmol/ L 134-14 4 Not Available [facility] ([facility]) [address] [facility] [place], [address], 12/21/2021 08:13:35 12/21/19 22 12/21/2021 COMP. METAB OLIC PANEL (14) potassium 4.6 mmol/ L 3.5-5. 2 Not Available [facility] ([facility]) [address] [facility], [place], [address], 12/21/2021 08:13:35 12/21/19 22 12/21/2021 COMP. METAB OLIC PANEL (14) chloride 101 mmol/ L 96-106 Not Available [facility] ([facility]) [address] [facility] [place], [address], 12/21/2021 08:13:35 12/21/19 22 12/21/2021 COMP. METAB OLIC PANEL (14) carbon dioxide, total 25 mmol/ L 20-29 Not Available [facility] ([facility]) [address] [facility] [place], [address], 12/21/2021 08:13:35 12/21/19 22 12/21/2021 COMP. METAB OLIC PANEL (14) calcium 9.0 mg/dL 8.7-10 .2 Not Available [facility] ([facility]) [address] [facility] [place], [address], 12/21/2021 08:13:35 12/21/19 22 12/21/2021 COMP. METAB OLIC PANEL (14) protein, total 6.7 g/dL 6.0-8. 5 Not Available [facility] ([facility]) [address], [place], [address], 12/21/2021 08:13:35 12/21/19 22 12/21/2021 COMP. METAB OLIC PANEL (14) albumin 4.3 g/dL 3.8-4. 9 Not Available [facility] ([facility]) [address], [place], [address], 12/21/2021 08:13:35 12/21/19 22 12/21/2021 COMP. METAB OLIC PANEL (14) globulin, total 2.4 g/dL 1.5-4. 5 Not Available [facility] ([facility]) [address] [facility], [place], [address], 12/21/2021 08:13:35 12/21/19 22 12/21/2021 COMP. METAB OLIC PANEL (14) A/G ratio 1.8 1.2-2. 2 Not Available [facility] ([facility]) [address] [facility], [place], [address], 12/21/2021 08:13:35 12/21/19 22 12/21/2021 COMP. METAB OLIC PANEL (14) bilirubin, total 0.3 mg/dL 0.0-1. 2 Not Available [facility] ([facility]) [address] [facility], [place], [address], 12/21/2021 08:13:35 12/21/19 22 12/21/2021 COMP. METAB OLIC PANEL (14) alkaline phosphatase 73 IU/L 44-121 Not Available [facility] ([facility]) [address] [facility], [place], [address], 12/21/2021 08:13:35 12/21/19 22 12/21/2021 COMP. METAB OLIC PANEL (14) AST (SGOT) 22 IU/L 0-40 Not Available [facility] ([facility]) [address] [place], [address], 12/21/2021 08:13:35 12/21/19 22 12/21/2021 COMP. METAB OLIC PANEL (14) ALT (SGPT) 21 IU/L 0-32 Not Available [facility] ([facility]) [address] [place], [address], 12/21/2021 08:13:35 12/21/19 22 12/21/2021 LP+CH D RISK+ LDL/H DL RATIO cholesterol, total 250 mg/dL 100-19 9 above high normal Not Available [facility] ([facility]) [address] [place], [address], 12/21/2021 08:13:35 12/21/19 22 12/21/2021 LP+CH D RISK+ LDL/H DL RATIO triglyceride s 46 mg/dL 0-149 Not Available [facility] ([facility]) [address] [place], [address], 12/21/2021 08:13:35 12/21/19 22 12/21/2021 LP+CH D RISK+ LDL/H DL RATIO HDL cholesterol 81 mg/dL >39 Not Available [facility] ([facility]) [address] [place], [address], 12/21/2021 08:13:35 12/21/19 22 12/21/2021 LP+CH D RISK+ LDL/H DL RATIO VLDL cholesterol rosa 7 mg/dL 5-40 Not Available [facility] ([facility]) [address] [place], [address], 12/21/2021 08:13:35 12/21/19 22 12/21/2021 LP+CH D RISK+ LDL/H DL RATIO LDL chol calc ([facility]) 162 mg/dL 0-99 above high normal Not Available [facility] (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) [address] [facility], [place], [address], 12/21/2021 08:13:35 12/21/19 22 12/21/2021 LP+CH D RISK+ LDL/H DL RATIO estimated CHD risk < 0.5 times _avg. 0.0-1. 0 The CHD Risk is based on the T. Chol/ HDL ratio . Other facto rs affec t CHD Risk such as hyper tensi on, smoki ng, diabe emile, sever e obesi ty, and famil y histo ry of russell ture CHD. Not Available [facility] ([facility]) [address] [facility], [place], [address], 12/21/2021 08:13:35 12/21/19 22 12/21/2021 LP+CH D RISK+ LDL/H DL RATIO LDL/HDL ratio 2.0 ratio 0.0-3. 2 LDL/H DL Ratio Men Women 1/2 Avg.R isk 1.0 1.5 Avg.R isk 3.6 3.2 2X Avg.R isk 6.2 5.0 3X Avg.R isk 8.0 6.1 Not Available [facility] ([facility]) [address] [facility], [place], [address], 12/21/2021 08:13:35 05/05/20 22 05/05/2022 urina lysis , dipst ick Leukocytes (reference range: negative john/ l) Negati ve Not Available [facility] [address] , [address], [place], [address], 05/05/2022 11:34:05 05/05/20 22 05/05/2022 urina lysis , dipst ick Nitrite (reference rage: negative mg/dl) negati ve Not Available [address] , [address], [place], [address], 05/05/2022 11:34:05 05/05/20 22 05/05/2022 urina lysis , dipst ick Urobilinogen (reference range: 0.2-1 mg/dl) 0.2 Not Available [address] , [address], [place], [address], 05/05/2022 11:34:05 05/05/20 22 05/05/2022 urina lysis , dipst ick Protein (reference range: negative mg/dl) Negati ve Not Available [address] , [address], [place], [address], 05/05/2022 11:34:05 05/05/20 22 05/05/2022 urina lysis , dipst ick pH (reference range: 5-7) 7.0 Not Available [address] , [address], [place], [address], 05/05/2022 11:34:05 05/05/20 22 05/05/2022 urina lysis , dipst ick Blood (reference range: negative Vickey/ l) Small Not Available [address] , [address], [place], [address], 05/05/2022 11:34:05 05/05/20 22 05/05/2022 urina lysis , dipst ick Specific [place] (reference range: 1.005-1.030) 1.015 Not Available [address] , [address], [place], [address], 05/05/2022 11:34:05 05/05/20 22 05/05/2022 urina lysis , dipst ick Ketone (reference range: negative mg/dl) Negati ve Not Available [address] , [address], [place], [address], 05/05/2022 11:34:05 05/05/20 22 05/05/2022 urina lysis , dipst ick Bilirubin (reference range: negative mg/dl) Negati ve Not Available [address] , [address], [place], [address], 05/05/2022 11:34:05 05/05/20 22 05/05/2022 urina lysis , dipst ick Glucose (reference range: negative mg/dl) Negati ve Not Available [address] , [address], [place], [address], 05/05/2022 11:34:05 05/05/20 22 05/05/2022 urina lysis , dipst ick Appearance Clear Not Available [address] , [address], [place], [address], 05/05/2022 11:34:05 05/05/20 22 05/05/2022 urina lysis , dipst ick Color Yellow Not Available [address] , [address], [place], [address], 05/05/2022 11:34:05 05/05/20 22 05/05/2022 CULTU RE URINE urc ===== ===== ===== ===== ===== ===== ===== ===== ===== ===== ===== ===== ===== ===== ===== ===== ===== ===== ===== ===== ===== ===== ===== ===== CULTU RE NO.: [id number] Exam Statu s: Final Exam Type: CULTU RE URINE ===== ===== ===== ===== ===== ===== ===== ===== ===== ===== ===== ===== ===== ===== ===== ===== ===== ===== ===== ===== ===== ===== ===== ===== Cultu re Repor t: Organ ism #01 Esche mike a coli (escc ol) Antib iotic s escco l Achie vable Achie vable (01) Dosag e Serum Level Urine Level mcg/m l mcg/m l Sylvia [place] <=2 S 021K Ampic illin 8 S 021K Ampic illin /Sulb actam 4 S 021K Cefaz mandy <=4 S 021K Cefep sarah <=1 S 021K Cefox itin <=4 S 021K Ceftr iaxon e <=1 S 021K Cipro floxa parish <=0.2 5 S 021K ESBL NEG - 021K Genta micin <=1 S 021K Levof loxac in <=0.1 2 S 021K Merop enem <=0.2 5 S 021K Piper acill in./T azaba <=4 S 021K Tobra mycin <=1 S 021K Trmet hopri m.Sul fa <=20 S 021K rt - Test Card Code AST-G N 021K o2 - Final Organ ism ESCHE R 021K af - Antib iotic Fami TRIME T 021K af - Antib iotic Famil y Na ap - Pheno type Name WILD 021K ap - Pheno type Name Nitro furan toin 32 S 021K Not Available [facility] ([facility]) [address], [place], [address], 05/07/2022 16:33:40 12/17/19 22 12/16/2021 MAMMO , scree christoph, digit al, bilat eral No observ ation record ed. [id number] [facility] [address], [place], [address], 08/26/2022 14:14:26 07/08/19 24 07/07/2023 XR, abdom en No observ ation record ed. [email or web address] [facility] [address], [place], [address], 07/08/2023 14:33:23 Result Notes None recorded. Problems Name Problem SNOMED Code Status Onset Date Resolution Date Notes Provider Name and Address Organization Details Recorded Time Osteoarth ritis 891545439 Active Not Available [facility] 3 14:11:33 Fibromyal dania 240669163 Active 2017 Not Available [facility] 3 14:11:32 Depressiv e disorder 38108923 Active 2017 Not Available [facility] 3 14:11:33 Migraine 36822317 Active 2017 Not Available [facility] 3 14:11:33 Post-trau matic stress disorder 13959824 Active 2017 Not Available [facility] 3 14:11:33 Anxiety 27736576 Active 2017 Not Available [facility] 3 14:11:33 Sleep apnea 76075870 Active 2017 Not Available [facility] 3 14:11:33 Pitting edema 013324178 Completed 201711/09/2018 Not Available [facility] 3 14:11:33 Hyperglyc emia 80980927 Active 2018 Not Available [facility] 3 14:11:33 History of total knee arthropla sty 76467308434 05 Active 2018 Not Available [facility] 3 14:11:32 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 Not Available [facility] 3 14:11:32 Cataract 540098585 Active 2020 Not Available [facility] 3 14:11:32 Disorder of vitamin D 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 Active 2020 Not Available [facility] 3 14:11:33 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 Not Available [facility] 3 14:11:32 Atrophic vaginitis 57675716 Active 2020 Not Available [facility] 3 14:11:33 Chronic idiopathi c constipat ion 25270772 Active 2020 Not Available [facility] 3 14:11:33 Bunion 355871237 Active 2021 Not Available [facility] 3 14:11:33 Mixed anxiety and depressiv e disorder 766362440 Active 2022 ZOHAR Contreras [address] [facility], [address], [address] , [facility] [employer] [facility] [employer] 3 11:52:51 Gastroeso phageal reflux disease 411932460 Active 2022 ZOHRA Contreras [address] [facility], [facility] [address], [place], [address] , [facility] [employer] [facility] [employer] 3 08:22:25 Problem Notes None recorded. Procedures Surgical History Date Name Laterality Status Provider Name and Address Organization Details Recorded Time Colonoscopy completed Not Available [facility] 08/26/2022 14:10:34 019 Knee Replacement completed Not Available [facility] 08/26/2022 14:10:34 parathyroidectomy completed Not Available [facility] 08/26/2022 14:10:34 Carpal tunnel completed Not Available [facility] 08/26/2022 14:10:34 Cholecystectomy completed Not Available [facility] 08/26/2022 14:10:34 Sinus Surgery completed Not Available [facility] includes the [facility] 08/26/2022 14:10:34 Hysterectomy, Partial completed Not Available Count includes the [facility] 08/26/2022 14:10:34 completed Not Available Count includes the [facility] 08/26/2022 14:10:34 lumpectomy of left breast completed Not Available Count includes the [facility] 08/26/2022 14:10:34 Imaging Results None recorded. Procedure Notes None recorded. Medical Equipment None Reported. Allergies Allergen ID Allergen Name Allergen Category Reaction Reaction Severity Criticality Documentation Date Start Date Code Code System Note Provider Name and Address Organization Details Recorded Time 66742 Wellbutri n medicatio n Not available Not available Not available 08/26/2022 51948 RxNorm state s it makes her psych otic Not Available Count includes the [facility] 3 14:14:23 84729 Substance with sulfonami de structure and antibacte rial mechanism of action (substanc e) medicatio n anaphylax is Not available Not available 08/26/2022 15016 8003 SNOMED Not Available Count includes the [facility] 3 14:14:23 30964 Product containin g penicilli n (product) medicatio n Not available Not available Not available 08/26/2022 32300 8001 SNOMED child bourne; has had amoxi cilli n as an adult and was fine Not Available Count includes the [facility] 3 14:14:23 05310 Cipro medicatio n Not available Not available Not available 08/26/202276205 3 RxNorm sympt oms of a heart attac k Not Available Count includes the [facility] 3 14:14:23 Medications Name Sig Start Date Stop Date Status Note LastModified by Organization Details LastModified Time celecoxib 200 mg capsule Take 1 capsule twice a day by oral route for 90 days. active Not Available Not Available No t Available methocarbam ol 500 mg tablet Take 2 tablets twice a day by oral route as needed. 08/23 completed Not Available Not Available Not Available doxepin 50 mg capsule 02/14 completed Not Available Not Available Not Available doxycycline hyclate 100 mg capsule Take 1 capsule twice a day by oral route for 10 days. active Not Available Not Available No t Available Depo-Medrol 40 mg/mL suspension for injection Take 1 mL every day by injection route for 1 day. 09/05 completed Not Available Not Available Not Available clindamycin HCl 300 mg capsule 02/23 completed Not Available Not Available Not Available azithromyci n 250 mg tablet 12/06 completed Not Available Not Available Not Available doxepin 25 mg capsule TAKE 1 CAPSULE BY MOUTH IN THE MORNING AND 2 AT BEDTIME 02/14 completed Not Available Not Available Not Available hydrocodone 5 mg-acetamin ophen 325 mg tablet 11/09 completed Not Available Not Available Not Available prednisone 20 mg tablet 01/15 completed Not Available Not Available Not Available clobetasol 0.05 % topical cream APPLY A THIN LAYER TO THE AFFECTED AREA(S) TWICE DAILY active Not Available Not Available No t Available Excedrin Migraine 250 mg-250 mg-65 mg tablet Take by oral route. 12/10 completed Not Available Not Available Not Available clindamycin HCl 150 mg capsule TAKE 4 CAPSULES BY MOUTH 1 HOUR PRIOR TO DENTAL APPOINTME NT 10/05 completed Not Available Not Available Not Available phentermine 37.5 mg tablet Take 1 tablet every day by oral route for 30 days. active Not Available Not Available No t Available sulfamethox azole 800 mg-trimetho prim 160 mg tablet Take 1 tablet every 12 hours by oral route for 7 days. 07/11 completed Not Available Not Available Not Available tramadol 50 mg tablet TAKE 1 TABLET BY MOUTH EVERY 6 HOURS NEEDED FOR PAIN active Not Available Not Available No t Available meloxicam 7.5 mg tablet Take 1 tablet every day by oral route for 30 days. active Not Available Not Available No t Available oxycodone-a cetaminophe n 5 mg-325 mg tablet 11/09 completed Not Available Not Available Not Available methocarbam ol 750 mg tablet Take 1 tablet twice a day by oral route. 03/23 completed Not Available Not Available Not Available gabapentin 800 mg tablet 12/06 completed Not Available Not Available Not Available trazodone 100 mg tablet TAKE 1 TABLET TWICE A DAY 2023 active Not Available Not Available Not Avai lable dexamethaso ne 1 mg tablet active Not Available Not Available Not Available diazepam 2 mg tablet TAKE 1 TABLET BY MOUTH TWICE DAILY NEEDED active Not Available Not Available No t Available baclofen 10 mg tablet 12/06 completed Not Available Not Available Not Available benzonatate 100 mg capsule Take 1 capsule 3 times a day by oral route as needed. 02/14 completed Not Available Not Available Not Available hydrocodone 7.5 mg-acetamin ophen 325 mg tablet Take 1-2 tablets by mouth every 6 hrs PRN active Not Available Not Available No t Available pantoprazol e 40 mg tablet,smooth yed release Take 1 tablet every day by oral route for 90 days. 08/23 completed Not Available Not Available Not Available cyanocobala min (vit B-12) 1,000 mcg/mL injection solution Inject 1 mL every month by subcutane ous route for 1 day. 01/15 completed [facility] [phone] Not Available Not Available Not Available trazodone 150 mg tablet TAKE 1 TABLET BY MOUTH NIGHTLY FOR SLEEP 12/10 completed Not Available Not Available Not Available oseltamivir 75 mg capsule Take 1 capsule every day by oral route for 10 days. 11/09 completed Not Available Not Available Not Available diclofenac sodium 75 mg tablet,smooth yed release TAKE 1 TABLET BY MOUTH TWICE DAILY WITH FOOD 09/13 completed Not Available Not Available Not Available montelukast 10 mg tablet 02/14 completed Not Available Not Available Not Available hydroxyzine HCl 25 mg tablet Take 1 tablet twice a day by oral route as needed for 30 days. active Not Available Not Available No t Available diazepam 10 mg tablet 12/06 completed Not Available Not Available Not Available epinephrine 0.3 mg/0.3 mL injection, auto-inject or INJECT 0.3 MG NEEED BY INJECTION ROUTE active Not Available Not Available No t Available ibuprofen 600 mg tablet 07/11 completed Not Available Not Available Not Available methylpredn isolone 4 mg tablets in a dose pack TAKE BY MOUTH DIRECTED ON INSIDE OF PACKAGE 09/05 completed Not Available Not Available Not Available Vitamin D2 1,250 mcg (50,000 unit) capsule Take 1 po weekly 12/10 completed Not Available Not Available Not Available celecoxib 100 mg capsule TAKE 1 CAPSULE BY MOUTH TWICE DAILY 02/14 completed Not Available Not Available Not Available metformin ER 500 mg tablet,exte nded release 24 hr TAKE 2 TABLETS BY MOUTH ONCE DAILY 07/02 completed Not Available Not Available Not Available Ventolin HFA 90 mcg/actuati on aerosol inhaler INHALE 2 PUFFS BY MOUTH EVERY 4 HOURS NEEDED 12/10 completed Not Available Not Available Not Available ezetimibe 10 mg tablet TAKE 1 TABLET BY MOUTH ONCE DAILY 07/02 completed Not Available Not Available Not Available nitrofurant oin monohydrate /macrocryst als 100 mg capsule Take 1 capsule every 12 hours by oral route for 5 days. 06/09 completed Not Available Not Available Not Available duloxetine 30 mg capsule,del ayed release TAKE 1 CAPSULE DAILY WITH A60MG CAPSULE FOR 90MG TOTAL 2023 active Not Available Not Available Not Avai lable duloxetine 60 mg capsule,del ayed release TAKE 1 CAPSULE ONCE DAILY 2023 active Not Available Not Available Not Avai lable pregabalin 50 mg capsule TAKE 1 CAPSULE BY MOUTH ONCE DAILY active Not Available Not Available No t Available pregabalin 75 mg capsule TAKE 1 CAPSULE BY MOUTH TWICE DAILY 12/10 completed Not Available Not Available Not Available Aleve 09/13 completed Not Available Not Available Not Available OneTouch Ultra2 Meter kit 09/11 completed Not Available Not Available Not Available evening primrose oil-linolei c acid-gamole herbert acid 1,000 mg capsule Take by oral route. 2017 active Not Available Not Available Not Avai lable diclofenac 1 % topical gel APPLY TO RIGHT KNEE TWICE DAILY 11/09 completed Not Available Not Available Not Available Suprep Bowel Prep Kit 17.5 gram-3.13 gram-1.6 gram oral solution 02/23 completed Not Available Not Available Not Available Xarelto 10 mg tablet TAKE 1 TABLET BY MOUTH EVERY 24 HOURS 08/23 completed Not Available Not Available Not Available Linzess 290 mcg capsule Take 1 capsule every day by oral route for 90 days. 07/02 completed Not Available Not Available Not Available Pennsaid 20 mg/gram/act uation (2 %) topical soln in metered-dos e pump APPLY 2 PUMPS (40 MG) TO THE AFFECTED KNEE(S) BY TOPICAL ROUTE 2 TIMES PER DAY 01/07 completed Not Available Not Available Not Available Pennsaid 2 % topical solution in packet APPLY 2 PUMPS TOPICALLY TO AFFECTED KNEE(S) TWICE DAILY 01/07 completed Not Available Not Available Not Available OneTouch Ultra Blue Test Strip USE TO TEST BLOOD SUGAR ONCE DAILY 09/11 completed Not Available Not Available Not Available OneTouch Delica Plus Lancet 33 gauge USE DIRECTED . TEST ONCE DAILY 09/11 completed Not Available Not Available Not Available Afluria Qd (36 mos up)(PF)60 mcg (15 mcg x4)/0.5 mL IM syringe ADM 0.5ML IM UTD 02/14 completed Not Available Not Available Not Available Flublok Quad (PF) 180 mcg (45 mcg x 4)/0.5 mL IM syringe PHARMACIS T ADMINISTE RED IMMUNIZAT ION ADMINISTE RED AT TIME OF DISPENSIN G active Not Available Not Available No t Available Vitals Date Recorded Body mass index (BMI) Body height Oxygen saturation Oxygen saturation in Arterial blood by Pulse oximetry Heart rate Body temperature Body weight Systolic And Diastolic Provider Name and Address Organization Details Last Updated DateTime 2 27.8 kg/m2 157.48 cm 98 % 98 % 75 /min 98 [degF] 46018.0 4 g 112/72 mm[Hg] Not Available [facility] 3 14:10:42 Date Recorded Body height Body mass index (BMI) Body weight Body temperature Heart rate Oxygen saturation Oxygen saturation in Arterial blood by Pulse oximetry Systolic And Diastolic Provider Name and Address Organization Details Last Updated DateTime 3 157.48 cm 32.6 kg/m2 71723.4 4 g 96.9 [degF] 76 /min 99 % 99 % 100/70 mm[Hg] TRACEY Aleman - [facility] [place] [employer] [facility] 3 08:10:00 Date Recorded Body mass index (BMI) Body height Oxygen saturation Oxygen saturation in Arterial blood by Pulse oximetry Heart rate Body temperature Body weight Systolic And Diastolic Provider Name and Address Organization Details Last Updated DateTime 2 26.5 kg/m2 157.48 cm 97 % 97 % 62 /min 96.7 [degF] 84452.8 9 g 114/72 mm[Hg] Not Available [facility] 3 14:10:42 Date Recorded Body mass index (BMI) Body height Oxygen saturation Oxygen saturation in Arterial blood by Pulse oximetry Heart rate Body temperature Body weight Systolic And Diastolic Provider Name and Address Organization Details Last Updated DateTime 2 29.1 kg/m2 157.48 cm 96 % 96 % 74 /min 97.2 [degF] 70452.1 9 g 124/70 mm[Hg] Not Available Count includes the [facility] 3 14:10:42 Date Recorded Body mass index (BMI) Body height Oxygen saturation Oxygen saturation in Arterial blood by Pulse oximetry Heart rate Body temperature Body weight Systolic And Diastolic Provider Name and Address Organization Details Last Updated DateTime 2 29.6 kg/m2 157.48 cm 98 % 98 % 60 /min 98 [degF] 25955.9 6 g 114/70 mm[Hg] Not Available Count includes the [facility] 3 14:10:42 Social History Question Answer Notes LastModified by [employer] Details LastModified Time Tobacco Smoking Status Never Smoker Not Available Count includes the [facility] 08/26/2022 14:10:23 What Is Your Level Of Caffeine Consumption? Moderate [id number] Information not available 08/26/2022 How Much Tobacco Do You Chew? None [id number] Information not available 08/26/2022 In The 14 Days Before Symptom Onset, Have You Had Close Contact With A Laboratory-confirm ed COVID-19 While That Case Was Ill? No [id number] Information not available 08/26/2022 In The 14 Days Before Symptom Onset, Have You Had Close Contact With A Person Who Is Under Investigation For COVID-19 While That Person Was Ill? No [id number] Information not available 08/26/2022 What Type Of Diet Are You Following? REGULAR [id number] Information not available 08/26/2022 Which Illicit Or Recreational Drugs Have You Used? None [id number] Information not available 08/26/2022 What Was The Date Of Your Most Recent Tobacco Screening? 11/09/2018 [id number] Information not available 08/26/2022 Has Tobacco Cessation Counseling Been Provided? No [id number] Information not available 08/26/2022 Do You Have Any Dietary Restrictions? No [id number] Information not available 08/26/2022 Sex: Unknown Functional Status Question Answer Note LastModified by Organizat ion Details LastModified Time Do you use any illicit or recreational drugs? No [id number] Information not available 08/26/2022 Do you or have you ever used any other forms of tobacco or nicotine? No [id number] Information not available 08/26/2022 What is your level of alcohol consumption? None [id number] Information not available 08/26/2022 What is your exercise level? Occasional [id number] Information not available 08/26/2022 Mental Status None recorded. Family History Relationship Description Onset Age of this Age Resolved Age Notes LastModified by Organization Details LastModified Time Maternal Aunt Malignant neoplasm of breast [id number] Not available 08/26/2022 14:10:35 Maternal Grandfather Myocardial infarction [id number] Not available 08/26/2022 14:10:35 Medical History Condition Response ARTHRITIS Y DIABETES, TYPE Y ULCERS Y GOUT Y DEPRESSION (INCLUDING POST ) Y HIGH CHOLESTEROL / HYPERLIPIDEMIA Y Gynecological History Statement/Question Response STIs/STDs N Current Control Method None Breast Problems no Discharge no Sexually Active? Y Obstetrics History GPAL:G 0 P 0 0 0 0 Immunizations Vaccine Type Date Status Note Provider Nam e and Address Organization Details Recorded Time Influenza, split virus, quadrivalent, preservative 2 completed Not Available Count includes the [facility] 08/26/2022 14:14:19 zoster, unspecified formulation 1 completed Not Available Count includes the [facility] 08/26/2022 14:14:19 COVID-19, mRNA, LNP-S, PF, 100 mcg/0.5mL dose or 50 mcg/0.25mL dose 1 completed Not Available [facility] 08/26/2022 14:14:19 Influenza, split virus, quadrivalent, preservative 1 completed Not Available [facility] 08/26/2022 14:14:19 Influenza, split virus, quadrivalent, preservative 0 completed Not Available [facility] 08/26/2022 14:14:19 Influenza, split virus, quadrivalent, preservative 9 completed Not Available [facility] 08/26/2022 14:14:19 Past Encounters Encounter ID Performer Location Encounter Start Date Encounter Closed Date Diagnosis/Indication Diagnosis SNOMED-CT Code Diagnosis ICD10 Code Diagnosis IMO Codes Diagnosis Note [id number] Tanesha Patel MD [facility] [place] [facility] [place] [address] 12/10/2020 00:00:00 12/10/2020 08:31:29 [id number] Tanesha Patel MD [facility] [place] [facility] [place] [address] 01/15/2021 00:00:00 01/15/2021 08:30:56 [id number] Tanesha Patel MD [facility] [place] [address] [place] [address] [place] [address] 03/31/2021 00:00:00 03/31/2021 11:23:33 [id number] Tanesha Patel MD [facility] [place] [facility] [place] [address] 07/02/2021 00:00:00 07/02/2021 09:50:23 [id number] Tanesha Patel MD [facility] [place] [facility] [place] [address] 09/11/2021 00:00:00 09/11/2021 17:21:45 [id number] Tanesha Patel MD [facility] [place] [facility] [place] [address] 12/24/2021 00:00:00 12/24/2021 08:46:27 [id number] Tanesha Patel MD [facility] [place] [address] [place] [address] [place] [address] 05/05/2022 00:00:00 05/05/2022 11:47:36 [id number] ZOHRA Contreras [facility] [place] [address] [facility] [address] [place] [address] 06/09/2022 00:00:00 06/09/2022 08:42:04 [id number] ZOHRA Contreras [facility] Primary [facility] [place] [address] [facility] [address] [place] [address] 10/05/2022 08:00:48 10/05/2022 08:35:34 Gastroesophageal reflux disease [id number] K21.9 She is having chest pain in the middle of her chest. Exacerbate d usually after evening meal. Episodes last about 90 seconds, have come and gone over the last 6-7 months. She has had her reflux under pretty good control since she has lost weight, states these episodes are just the pain. She has also had a hx of ulcers. Will send to GI for further evaluation /scope. Advised she take PPI in meantime. Health Concerns Section Related Observation LastModified by Organization Detai ls LastModified Time None Recorded Concern Status LastModified by Organization Details LastModified Time None Recorded Advance Directives Directive None Recorded Payers Insurance Date Sequence Insurance Name Policy Number Policy Lopez Covered Member ID Lopez Member ID Guarantor Name 10/19/2022 1 [employer] (POS) Radha Marshall [id number] Radha Marshall 09/24/2022 2 [employer] BETTER HEALTH OF [place] - DOS ON OR AFTER 2020 (MEDICAID REPLACEMENT - HMO) Radha Marshall [id number] Radha Marshall 09/24/2022 2 [employer] (POS) Radha Marshall [id number] Radha Marshall 09/24/2022 1 [facility] [id number] Jay Jay Marshall [id number] Radha Marshall Notes Date Note Type Note Provider Name and Address Organization Details Recorded Time 10/05/2022 text/html Pt. states she has been getting pain in the middle of her chest/feels like a muscle spasm after she usually eats her evening meal. States it lasts about 90 seconds. It has happened 4-5 times in the last 6-7 months. She states she can feel it coming on before it hits her. She states she lays on the floor sometimes to help alleviate the symptoms. She has not been able to see an exact pattern in foods that cause the symptoms. She does have a hx of GERD. ZOHRA Contreras [address], [address], [place], [address], [place] [facility] 10/05/2022 08:28:47 OBGyn Episode No OBEpisode recorded.
--- OUTSIDE RECORDS SUMMARY | 2025-04-09 16:35 | XMS_ITS | Patient Health Record ---
Author Organization [facility] Address [address] [facility] [address] [place] [address] Care Team Providers Care [employer] Name Role Phone Luis Antonio Rocha Unavailable [phone] Reason For Referral No Information Plan Of Treatment No Information
[2025-04-09 21:06] LABS: Hematocrit 39.5 % (37.0-47.0); Hemoglobin 12.9 g/dL (12.0-15.0); Immature Granulocyte Percent A 0.4 % (0-0.5); Lymphocytes Absolute Auto 2.57 K/mm3 (0.9-3.2); Mean Corpuscular HGB Conc 32.7 g/dl (32-36); Mean Corpuscular Hemoglobin 29.2 pg (26-34); Mean Corpuscular Volume 89.4 fl (80-100); Nucleated Red Blood Cells Absolute Auto 0.000 K/mm3 (0.0-0.012); Nucleated Red Blood Cells Perc 0.0 % (0.0-0.2); Platelet Count Result 326 k/mm3 (150-375); Red Blood Count 4.42 M/mm3 (4.2-5.4); White Blood Count 8.3 K/mm3 (4.5-10.0)
[2025-04-09 21:19] LABS: INR 0.9; Partial Thromboplastin Time 26.7 Seconds (22.3-36.8); Prothrombin Time 12.2 Seconds (11.1-14.7)
[2025-04-09 21:24] LABS: Alanine Aminotransferase 31 U/L (6-35); Albumin Level 4.2 g/dL (3.5-5.1); Alkaline Phosphatase 92 U/L (38-126); Anion Gap 6 mmol/L (4-12); Aspartate Amino Transferase 35 U/L (14-36); Bilirubin,Total 0.5 mg/dL (0.2-1.3); Blood Urea Nitrogen 14 mg/dL (7-17); Calcium 9.2 mg/dL (8.4-10.2); Carbon Dioxide 28 mmol/L (22-30); Chloride 100 mmol/L (98-107); Estimated CRCL calculation 72 ml/min; Estimated Glomerular Filt Rate > 60; Glucose 101 mg/dL (65-110); Lipase 96 U/L (23-300); Potassium 4.6 mmol/L (3.4-5.0); Sodium 134 mmol/L (137-145); Total Protein 7.4 g/dL (6.3-8.2)
[2025-04-09 21:27] LABS: Troponin I < 0.012 ng/mL (0.000-0.034)
--- NOTE | 2025-04-09 22:16 | ED.GENADULT ---
HPI - General Adult General Chief complaint: Arrhythmia/Palpitations Stated complaint: fluctuating HR Time Seen by Provider: 04/09/25 20:38 History of Present Illness HPI narrative: This is a 51-year-old female with history of chronic pain and anxiety/depression presenting for palpitations. Patient has been having intermittent palpitations for the last several months. She seemed was her his anxiety as she has a very stressful job. She has since quit the job but today felt like she was having palpitations throughout most of the day. She did note that she had been out in the garden when she came inside she felt slightly lightheaded and checked her pulse and it was in the 30s. She did not faint. Her heart rate then return to normal without intervention. No history of a vasovagal syncope. She has been in relatively good health though she has had 2 viral illnesses over the last month. She has decreased exercise tolerance due to a sedentary lifestyle but she is working on improving her fitness. She says that she can only walk about a block before becoming winded. She denies any fevers, chest pain, abdominal pain, nausea vomiting or diarrhea. No lower extremity edema. She wears a CPAP at night every night. She does have her typical dyspnea exertion but she does not feel that that is related to her current symptoms. Related Data Home Medications ?Medication ?Instructions ?Recorded ?Confirmed ?Last Taken ?Type evening primrose oil-linoleic 1 cap PO BID 11/14/19 09/26/24 Unknown History acid-gamolenic acid 1,000 mg capsule calcium polycarbophil 625 mg 1,250 mg PO DAILY 10/27/22 09/26/24 Unknown History tablet (FiberCon) clindamycin HCl 150 mg capsule 150 mg PO USEASDIRECTD 10/27/22 09/26/24 Unknown History fluticasone propionate 50 2 spray intranasal HS 10/27/22 09/26/24 Unknown History mcg/actuation nasal spray,suspension loratadine 10 mg tablet (Claritin) 10 mg PO DAILY 10/27/22 09/26/24 Unknown History polyethylene glycol 3350 17 17 g PO DAILY 10/27/22 04/09/25 04/08/25 History gram/dose oral powder (Miralax) Allergies Allergy/AdvReac Type Severity Reaction Status Date / Time ciprofloxacin (From Cipro) Allergy Severe severe Verified 09/26/24 10:24 penicillin G Allergy Intermediate Difficulty Verified 09/26/24 10:24 Breathing Penicillins Allergy Intermediate Difficulty Verified 09/26/24 10:24 Breathing Quinolones Allergy Intermediate Other Verified 09/26/24 10:24 sulfamethoxazole Allergy Intermediate ITCHING/HIV Verified 09/26/24 10:24 ES trimethoprim Allergy Intermediate ITCHING/HIV Verified 09/26/24 10:24 ES bupropion AdvReac Intermediate Agitated Verified 09/26/24 10:24 PMFSH Past Medical History Medical History Pitting edema Insomnia PTSD (post-traumatic stress disorder) Nonspecific chest pain Epigastric pain Hx of colonic polyps Arthritis, lumbar spine Bilateral carpal tunnel syndrome Ulcer Gout Burning mouth syndrome Migraine Arthritis Anxiety Fibromyalgia Bronchitis Depression Surgical History Surgical History History of lumpectomy of left breast History of parathyroidectomy History of foot surgery History of bilateral carpal tunnel release History of History of thyroid surgery History of cholecystectomy History of partial hysterectomy H/O sinus surgery S/p total knee replacement, bilateral right - 09/22/18 halina left 04/21/19 samuel Family History Family History Father Family history of malignant neoplasm of thyroid Sibling Family history of malignant neoplasm of thyroid Grandparent Family history of lung cancer, Onset Age: 60 Other Diabetes mellitus Family history of alcoholism Family history of malignant neoplasm of breast Family history of mental disorder Social History Social History Smoking status: Never smoker Alcohol intake: current Drinks per week: 10 Alcohol use details: Gin Daily when it's in the house Substance use: never Substance use type: does not use Do You Feel Safe in your Home?: Yes Lack of Transportation: No Lack of Food: Never True Current Housing: I Have Housing Concerned About Future Housing: No Difficulty Paying Gas/Electric Bills: No Difficulty Paying for Meds: No Currently Unemployed: No Education: High School Diploma/GED Difficulty w/ Childcare or Family Care: No Living arrangements: with family Occupation/Education: occupation Additional occupation/education comments: [employer] [place] 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 Head: atraumatic. EYES: EOMI, NOSE: Atraumatic NECK: Trachea midline RESPIRATORY: No increased rate of breathing clear to auscultation CARDIOVASCULAR: RRR, no peripheral edema ABDOMINAL: Non-distended soft nontender MUSCULOSKELETAl: No obvious deformities NEURO: Alert. Moving 4/4 extremities SKIN:: Warm, dry. Normal color PSYCHIATRIC: Normal affect Course Vital Signs Vital signs: Vital Signs Temperature 97.8 F 04/09/25 16:52 Pulse Rate 42 L 04/09/25 16:52 Respiratory Rate 16 04/09/25 16:52 Blood Pressure 151/86 H 04/09/25 16:52 Pulse Oximetry 98 04/09/25 16:52 Oxygen Delivery Room Air 04/09/25 16:52 Temperature 97.8 F 04/09/25 16:52 Pulse Rate 72 04/09/25 21:46 Respiratory Rate 15 04/09/25 21:46 Blood Pressure 127/76 04/09/25 21:46 Pulse Oximetry 97 04/09/25 21:46 Oxygen Delivery Room Air 04/09/25 16:52 Medical Decision Making MDM Narrative Medical decision making narrative: -Course: This 59-year-old female presenting with 3 months of palpitations. 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 She on her EKG she had a bigeminal pattern. She also had an episode of bradycardia although she is not bradycardic here there is no clear etiology or bradycardia. She is not on any AV jose alejandro blocking agents. She has not taken any other new medications. Patient feels well overall. Labs within normal limits including electrolytes. Troponins undetectable. Chest x-ray showed some patchy infiltrates in the lower lobes although the patient does not have any respiratory symptoms or other signs of infection. Patient is comfortable following up with a assembler dielectric heater she may need a Holter monitor. Patient will be discharged with return precautions. -DDX includes but is not limited to: Sick sinus syndrome, vasovagal syncope, anxiety, bigeminy, PVCs, PACs, a -Co-morbidities complicating care: Anxiety, chronic pain Independent EKG interpretation: Rhythm [sinus], Rate [92], Calypso -[normal], DC -[normal], QRS [narrow], QTC [normal], T waves -[negative for concerning inversions], ST Segments - [Negative for concerning elevations] Final interpretations: [Normal sinus rhythm with bigeminy and occasional PVCs. Vital Signs Vital Signs: Vital Signs Temperature 97.8 F 04/09/25 16:52 Pulse Rate 42 L 04/09/25 16:52 Respiratory Rate 16 04/09/25 16:52 Blood Pressure 151/86 H 04/09/25 16:52 Pulse Oximetry 98 04/09/25 16:52 Oxygen Delivery Room Air 04/09/25 16:52 Temperature 97.8 F 04/09/25 16:52 Pulse Rate 72 04/09/25 21:46 Respiratory Rate 15 04/09/25 21:46 Blood Pressure 127/76 04/09/25 21:46 Pulse Oximetry 97 04/09/25 21:46 Oxygen Delivery Room Air 04/09/25 16:52 Lab Data 04/09/25 21:00 04/09/25 21:00 Labs: Lab Results 04/09/25 Range/Units 21:00 WBC 8.3 (4.5-10.0) K/mm3 RBC 4.42 (4.2-5.4) M/mm3 Hgb 12.9 (12.0-15.0) g/dL Hct 39.5 (37.0-47.0) % MCV 89.4 (80-100) fl MCH 29.2 (26-34) pg MCHC 32.7 (32-36) g/dl RDW 13.8 (11.5-14.5) % Plt Count 326 (150-375) k/mm3 MPV 9.1 (7.4-10.4) fl Immature Gran % (Auto) 0.4 (0-0.5) % Neut % (Auto) 57.6 (45.5-73.1) % Lymph % (Auto) 31.0 (18.3-44.2) % [place] % (Auto) 7.6 (2.6-8.5) % Eos % (Auto) 2.8 (0-4.4) % Baso % (Auto) 0.6 (0.2-1.2) % Lymph # (Auto) 2.57 (0.9-3.2) K/mm3 [place] # (Auto) 0.6 (0.1-0.6) K/mm3 Eos # (Auto) 0.2 (0-0.3) K/mm3 Baso # (Auto) 0.1 (0.0-0.1) K/mm3 Abs Immat Gran (auto) 0.03 (0.00-0.031) K/mm3 Absolute Neuts (auto) 4.8 (1.3-6.7) K/mm3 Absolute Nucleated RBC 0.000 (0.0-0.012) K/mm3 Nucleated RBC % 0.0 (0.0-0.2) % PT 12.2 (11.1-14.7) Seconds INR 0.9 APTT 26.7 (22.3-36.8) Seconds Sodium 134 L (137-145) mmol/L Potassium 4.6 (3.4-5.0) mmol/L Chloride 100 (98-107) mmol/L Carbon Dioxide 28 (22-30) mmol/L Anion Gap 6 (4-12) mmol/L BUN 14 (7-17) mg/dL Creatinine 0.84 (0.7-1.0) mg/dL Estim Creat Clear Calc 72 ml/min Estimated GFR > 60 (59 - ) Glucose 101 (65-110) mg/dL Calcium 9.2 (8.4-10.2) mg/dL Total Bilirubin 0.5 (0.2-1.3) mg/dL AST 35 (14-36) U/L ALT 31 (6-35) U/L Alkaline Phosphatase 92 (38-126) U/L Troponin I < 0.012 (0.000-0.034) ng/mL Total Protein 7.4 (6.3-8.2) g/dL Albumin 4.2 (3.5-5.1) g/dL Lipase 96 (23-300) U/L Discharge Plan Discharge Clinical Impression: Heart palpitations Patient Disposition: Home Condition: Stable Instructions: Antibiotic Form, Heart Palpitations (DC) Additional Instructions: You were seen in the emergency department for palpitations. Your EKG showed a ventricular bigeminy pattern. This is not dangerous. Please follow-up with the assembler dielectric heater listed below for further management. If you develop chest pain, shortness of breath, fainting, or any new or worsening symptoms please return to the ED for re-evaluation. Patient Language: Tuvaluan Prescriptions: No Action lambert tjge-xodswlfy-felyveyqb ac 1,000 mg capsule 1 cap PO BID Rx Instructions: administer with meals tramadol 50 mg tablet 50 mg PO Q12H PRN (Reason: pain) Qty: 30 0RF clindamycin HCl 150 mg capsule 150 mg PO USEASDIRECTD Patient Comments: TAKES PRIOR TO PROCEDURES fluticasone propionate 50 mcg/actuation [place],Suspension 2 spray INTRANASAL HS Rx Instructions: administer into each nostril loratadine [Claritin] 10 mg Tablet 10 mg PO DAILY calcium polycarbophil [FiberCon] 625 mg Tablet 1,250 mg PO DAILY polyethylene glycol 3350 [Miralax] 17 gram/dose Powder 17 g PO DAILY duloxetine [Cymbalta] 30 mg capsule,delayed release(DR/EC) 30 mg PO DAILY Qty: 90 3RF duloxetine [Cymbalta] 60 mg capsule,delayed release(DR/EC) 60 mg PO DAILY Qty: 90 3RF diazepam 2 mg tablet 2 mg PO DIRECTED PRN (Reason: Anxiety) Qty: 30 2RF trazodone 100 mg tablet 100 mg PO HS Qty: 90 3RF metformin 500 mg tablet extended release 24 hr See Rx Instructions .ROUTE .COMPLEX Qty: 180 3RF Dose Instruction: Take 1 tablet by mouth twice daily Rx Instructions: Take 1 tablet by mouth twice daily Follow-up/Referrals: Marlyn Hickey APRN [Primary Care Provider, Family Practice] glenn [Other] Manoj Mosley MD [Physician, Cardiology] - 3 Days Referral Note: Palpitations.
== END 2025-04-09 22:39 | disposition home or self-care (01) ==
PROVIDERS: Emergency Provider Emergency Medicine; PCP Nurse Practitioner Adult Health
DX: R00.2 Palpitations (principal); M47.816 Spondylosis without myelopathy or radiculopathy, lumbar region; M10.9 Gout, unspecified; M19.90 Unspecified osteoarthritis, unspecified site; M79.7 Fibromyalgia; G89.29 Other chronic pain; F41.9 Anxiety disorder, unspecified; F32.A Depression, unspecified; F43.10 Post-traumatic stress disorder, unspecified; Z96.653 Presence of artificial knee joint, bilateral; Z86.0100 Personal history of colon polyps, unspecified; Z90.89 Acquired absence of other organs; Z90.711 Acquired absence of uterus with remaining cervical stump; Z90.49 Acquired absence of other specified parts of digestive tract; R00.8 Other abnormalities of heart beat; Z79.899 Other long term (current) drug therapy
CPT/HCPCS: 36415; 71045; 80053; 83690; 84484; 85025; 85610; 85730; 93005; 99284

== ENCOUNTER 2025-06-01 11:16 | Outpatient (CLI) | payer OTHER, SELFPAY ==
--- NOTE | ~2025-06-01 | MM_ITS ---
EXAMINATION: MM screening mammography BI w ed HISTORY: Screening. Left lumpectomy/partial mastectomy. TECHNIQUE: Craniocaudal and mediolateral oblique 3-D tomosynthesis images were obtained and synthetic 2-D images were generated. CAD analysis was submitted and interpreted. COMPARISON: 2023, 2022, and 2021. BREAST PARENCHYMAL COMPOSITION: Not Dense: There are scattered areas of fibroglandular FINDINGS: There are biopsy marker/clips on the left. No suspicious masses are seen. There are no suspicious calcifications. There are postoperative changes on the left. No unexplained architectural distortion is seen. There are no skin or nipple abnormalities identified. There is no adenopathy seen on the images submitted. IMPRESSION: No mammographic evidence to suggest malignancy is seen. The patient may return to screening mammography as per ACR guidelines. BI-RADS 2 - Benign. Reviewed, dictated and finalized at location B. [facility]
== END 2025-06-01 11:17 | disposition home or self-care (01) ==
PROVIDERS: PCP Nurse Practitioner Adult Health; Visit Provider Nurse Practitioner Adult Health
DX: Z12.31 Encounter for screening mammogram for malignant neoplasm of breast (principal)
CPT/HCPCS: 77063; 77067